=== PATIENT | male | born 1950 | race Caucasian/White ===

== ENCOUNTER → 2017-01-06 | Outpatient (CLI) | payer MEDICARE ==
[~2017-01-06] MED LIST: ACET-819 PO; ADVIL; ALLERGY PILL; ASPI1TAB22 PO; CIPR-17 PO; CIPR250S2 PO; DXZS2T PO; FISH1CAP15 PO; FNST5T PO; HCTZ12.5T PO; HYDR-3583 PO; HYDR-3876 PO; HYOS0.1216 PO; IBUP-15; LSNP20T; MELO-198 PO; METR500T PO; MUCINEX; PHEN200T27 PO; PROM25SU10 RC; QUIN20TA15 PO; SULF-222 PO; TMSL.4C PO
--- NOTE | 2017-01-09 07:19 | ECHOCARDIOGRAPHY REPORT ---
PROCEDURE PHYSICIAN: ALEXY BOB DATE OF PROCEDURE: 01/06/2017 TWO DIMENSIONAL ECHOCARDIOGRAM REPORT PRIMARY PHYSICIAN: Dr. Kamila Patricia OTHER PHYSICIAN: REFERRING PHYSICIAN: ORDERING PHYSICIAN: ATTENDING PHYSICIAN: Dr. Jose Bob FAMILY PHYSICIAN: Vannessa Rico READING PHYSICIAN: INDICATION FOR THE PROCEDURE: 1. Hypertension. 2. Hyperlipidemia. 3. Obstructive sleep apnea. 4. Shortness of breath. MEASUREMENTS DERIVED VALUES LV DIAMETER (LAX) NORMALS NORMALS Diastolic (3.6-5.2) Eject. Fract. (60%+/-6%) Systolic (2.3-3.9) Diastolic Vol. % Shortening (0.22-0.42) Systolic Vol. Aortic Root IVS THICKNESS Diastolic (0.6-1.1) LVPW THICKNESS Diastolic (0.6-1.1) LA DIAMETER Systolic (2.1-3.7) FINDINGS: 1. Sinus rhythm. 2. Mild left atrium enlargement is noted. 3. Aortic root is normal. 4. Borderline normal ejection fraction with an EF of 50 to 55%. No LVH is present. 5. There is no wall motion abnormalities. 6. Normal RV size and function. 7. No pericardial effusion. 8. Mild diastolic dysfunction. 9. IVC diameter is 1.9 cm. VALVULAR STRUCTURE OF THE HEART: Mild pulmonic regurgitation, mild mitral regurgitation, mild tricuspid regurgitation with RVSP of 21 mmHg. The aortic valve does not have any significant stenosis or regurgitation. CONCLUSIONS: 1. Normal LV and RV size and function. 2. Mild left atrial enlargement. 3. No significant valvular heart disease. 4. Mild diastolic dysfunction. Job ID: [id number] Dictated Date: 01/08/2017 22:35:34 Account Receivable Clerk Date: 01/09/2017 07:15:21 / ej
== END ==
LOC: CARD 08:09
PROVIDERS: ATTEND Internal Medicine Interventional Cardiology
DX: I10 Essential (primary) hypertension (principal); E78.5 Hyperlipidemia, unspecified; G47.33 Obstructive sleep apnea (adult) (pediatric); R06.02 Shortness of breath; Z87.891 Personal history of nicotine dependence
CPT/HCPCS: 93306

== ENCOUNTER → 2017-01-08 | Outpatient (CLI) | payer MEDICARE ==
[~2017-01-08] MED LIST changes: +REGADENOSON 0.4 MG/5 ML SYR (LEXISCAN) IV ONE
[2017-01-08] MEDS: CATHETER FLUSH 10 ML SYR IV PRN (11:44)
[2017-01-08 12:51] VITALS: BP 120/79
[2017-01-08] MEDS: REGADENOSON 0.4 MG/5 ML SYR (LEXISCAN) IV ONE (12:51)
[2017-01-08 12:55] VITALS: BP 134/72
--- NOTE | 2017-01-12 11:12 | STRESS TEST ---
PROCEDURE PHYSICIAN: ALEXY BOB DATE OF PROCEDURE: 01/08/2017 PRIMARY PHYSICIAN: Dr. Kamila Patricia FAMILY PHYSICIAN: Vannessa Rico APRN ATTENDING PHYSICIAN: Dr. Jose Bob. DIAGNOSES: 1. Hypertension. 2. Hyperlipidemia. PROCEDURE DETAILS: The patient was brought to the stress laboratory informed consent was taken. Lexiscan stress test was performed according to the protocol. 0.4 mg of Lexiscan was given IV. Low grade exercise was performed. Baseline EKG was sinus rhythm with heart rate of 54 bpm. Blood pressure was 120/79 mmHg. Maximum heart rate was 91 bpm and blood pressure was 134/70 mmHg. Stress test was stopped secondary to completion of protocol. The patient did not have any chest pain. There were no ST-T wave abnormalities. There were no arrhythmias. 10.34 mCi of Myoview were given for rest and 28.4 mCi of Myoview were given for stress images. TID was 1.01. Ejection fraction is 74%. There was a mild reversible inferior defect noted. Gaited images shows normal wall motion. CONCLUSION: 1. Pharmacological nuclear stress test is negative for ischemia. 2. There is a mild small sized reversible inferior defect with normal wall motion. This could be an artifact. Clinical correlation is recommended. Job ID: [id number] Dictated Date: 01/12/2017 09:15:06 Supervisor Shipfitters Date: 01/12/2017 11:06:01 / ej JANE
== END ==
LOC: CARD 11:20
PROVIDERS: ATTEND Internal Medicine Interventional Cardiology
DX: I10 Essential (primary) hypertension (principal); R06.02 Shortness of breath; E78.5 Hyperlipidemia, unspecified; G47.33 Obstructive sleep apnea (adult) (pediatric); Z87.891 Personal history of nicotine dependence
CPT/HCPCS: 78452; 93017

== ENCOUNTER → 2017-03-25 | Outpatient (CLI) | payer MEDICARE ==
[~2017-03-25] MED LIST changes: -REGADENOSON 0.4 MG/5 ML SYR (LEXISCAN) IV ONE
[2017-03-25 09:13] LABS: CHOLESTEROL 133 MG/DL (< 200); DIRECT LDL 78 MG/DL (1-129); TRIGLYCERIDES 100 MG/DL (<150); VLDL CHOLESTEROL 20 MG/DL (5-40)
== END ==
LOC: LAB 08:39
PROVIDERS: ATTEND Internal Medicine Interventional Cardiology
DX: E78.5 Hyperlipidemia, unspecified (principal)
CPT/HCPCS: 36415; 80061

== ENCOUNTER → 2017-04-22 | Outpatient (CLI) | payer MEDICARE ==
[2017-04-22 13:42] LABS: ALANINE AMINOTRANSFERASE 32 U/L (0-55); ALBUMIN 4.1 GM/DL (3.2-4.5); ANION GAP 10 MMOL/L (5-14); ASPARTATE AMINO TRANSFERASE 30 U/L (5-34); BILIRUBIN,TOTAL 1.3 MG/DL (0.1-1.0); BLOOD UREA NITROGEN 27 MG/DL (7-18); BUN/CREATININE RATIO 23 (0-20); CALCIUM 9.4 MG/DL (8.5-10.1); CARBON DIOXIDE 24 MMOL/L (21-32); CHLORIDE 107 MMOL/L (98-107); CREATININE SERUM 1.15 MG/DL (0.60-1.30); GFR ESTIMATED > 60; GLUCOSE 100 MG/DL (70-105); HEMOLYSIS 14 (0-29); ICTERUS 1.3 (0-1.9); LIPEMIA 1 (0-49); POTASSIUM 3.8 MMOL/L (3.6-5.0); SODIUM 141 MMOL/L (135-145); TOTAL PROTEIN 6.8 GM/DL (6.4-8.2)
== END ==
LOC: LAB 12:47
PROVIDERS: ATTEND Internal Medicine Interventional Cardiology
DX: N20.0 Calculus of kidney (principal)
CPT/HCPCS: 36415; 80053

== ENCOUNTER → 2017-08-26 | Outpatient (CLI) | payer MEDICARE, OTHER ==
[2017-08-26 11:40] LABS: BASOPHILS % (AUTO) 1 % (0-10); EOSINOPHILS # (AUTO) 0.4 10^3/uL (0.0-0.3); EOSINOPHILS % (AUTO) 6 % (0-10); LYMPHOCYTES # (AUTO) 1.8 X 10^3 (1.0-4.0); LYMPHOCYTES % (AUTO) 30 % (12-44); MEAN CORPUSCULAR HEMOGLOBIN 33 PG (25-34); MEAN CORPUSCULAR HGB CONC 36 G/DL (32-36); MEAN CORPUSCULAR VOLUME 92 FL (80-99); MEAN PLATELET VOLUME 10.7 FL (7.4-10.4); MONOCYTES # (AUTO) 0.6 X 10^3 (0.0-1.0); MONOCYTES % (AUTO) 9 % (0-12); NEUTROPHILS # (AUTO) 3.2 X 10^3 (1.8-7.8); NEUTROPHILS % (AUTO) 54 % (42-75); PLATELET COUNT 195 10^3/uL (130-400); RED BLOOD COUNT 4.79 10^6/uL (4.35-5.85)
[2017-08-26 11:45] LABS: BILIRUBIN,URINE NEGATIVE (NEGATIVE); KETONES,URINE NEGATIVE (NEGATIVE); LEUKOCYTE ESTERASE ,URINE NEGATIVE (NEGATIVE); NITRITE,URINE NEGATIVE (NEGATIVE); PH,URINE 5 (5-9); PROTEIN,URINE NEGATIVE (NEGATIVE); UROBILINOGEN,URINE NORMAL (NORMAL)
[2017-08-26 11:52] LABS: SQUAMOUS EPITHELIAL CELL,UR RARE /HPF; WBC,URINE RARE /HPF
[2017-08-26 11:57] LABS: ALBUMIN 4.3 GM/DL (3.2-4.5); ANION GAP 9 MMOL/L (5-14); BLOOD UREA NITROGEN 28 MG/DL (7-18); BUN/CREATININE RATIO 29; CALCIUM 9.7 MG/DL (8.5-10.1); CARBON DIOXIDE 25 MMOL/L (21-32); CHLORIDE 105 MMOL/L (98-107); CREATININE SERUM 0.98 MG/DL (0.60-1.30); GFR ESTIMATED > 60; GLUCOSE 105 MG/DL (70-105); PHOSPHORUS 2.8 MG/DL (2.3-4.7); POTASSIUM 3.8 MMOL/L (3.6-5.0); SODIUM 139 MMOL/L (135-145)
[2017-08-26 12:11] LABS: BAND NEUTROPHILS 1 %; EOSINOPHILS % (MANUAL) 4 %; LYMPHOCYTES % (MANUAL) 19 %; NEUTROPHILS % (MANUAL) 60 %; REACTIVE LYMPHOCYTES 6 %
== END ==
LOC: LAB 11:18
PROVIDERS: ATTEND Internal Medicine Interventional Cardiology
DX: M79.89 Other specified soft tissue disorders (principal); N20.0 Calculus of kidney
CPT/HCPCS: 36415; 80069; 81000; 85007; 85027; 87088; 87186

== ENCOUNTER → 2018-02-04 | Outpatient (CLI) | payer MEDICARE ==
--- NOTE | 2018-02-04 10:47 | Diagnostic Imaging Report ---
PROCEDURE: MRI lumbar spine. TECHNIQUE: A multiplanar/multisequence MRI of the lumbar spine was performed without contrast. INDICATION: Low back pain with left hip and leg pain as well as numbness and tingling. COMPARISON: No prior studies are available for comparison. FINDINGS: The curvature of the lumbar spine is normal. There is minimal retrolisthesis of L2 on L3. The vertebral body heights are maintained. No acute compression fracture is seen. No geographic marrow lesion is identified. There is generalized degenerative disc disease with mild disc space narrowing and desiccation at all levels. The conus is unremarkable at the L1 level. Benign hemangiolipomas within the T11 and L1 vertebral bodies are noted. T12-L1: No central canal or neuroforaminal stenosis is identified. L1-2: Unremarkable. L2-3: There is a minimal disc/osteophyte complex but the central canal is widely patent. No significant neuroforaminal stenosis is seen. L3-4: There is a slightly asymmetric broad-based disc/osteophyte complex to the left. This produces slight indentation upon the ventral thecal sac. There is narrowing of the left lateral recess but no significant neuroforaminal stenosis is seen. The central canal is patent. L4-5: The central canal is widely patent. There is some annular bulging present. No neuroforaminal stenosis is seen. There is some mild bilateral lateral recess stenosis. L5-S1: There is a wide-based midline/left paramidline disc bulge. This does indent the ventral thecal sac. This does contact the left S1 nerve root origin. There is lateral recess stenosis. The neuroforamina are patent. The paraspinous tissues are unremarkable apart from a questionable large cyst of the right kidney, barely visible on this exam. IMPRESSION: Multilevel lumbar spondylosis with multilevel lateral recess narrowing described level by level above. There is a prominent wide based midline/left paramidline disc bulge at the L5-S1 level which effaces the left S1 nerve root origin. Dictated by: Dictated on workstation # [id number]
== END ==
LOC: RAD 09:12
PROVIDERS: ATTEND Physician Assistant
DX: M48.07 Spinal stenosis, lumbosacral region (principal); M51.17 Intervertebral disc disorders with radiculopathy, lumbosacral region; M47.816 Spondylosis without myelopathy or radiculopathy, lumbar region
CPT/HCPCS: 72148

== ENCOUNTER 2018-03-04 13:37 | Emergency (ER) | payer MEDICARE, OTHER ==
[~2018-03-04] VITALS: Ht 172.7 cm; Wt 92.5 kg
--- OUTSIDE RECORDS SUMMARY | 2018-03-04 13:43 | XMS REPORT ---
Author Author MARIA LUZ VELA [facility] eClinicalWorks Address Unknown Phone Unavailable Care Team Providers Care Cement Boat And Barge Loader Name Role Phone MARIA LUZ VELA CP Unavailable Allergies No Known Allergies Problems Problem Type Condition ICD-9 Code Onset Dates Condition Status Problem Calculus of kidney 592.0 Active Problem Lumbago 724.2 Active Problem Obstructive sleep apnea (adult) (pediatric) 327.23 Active Problem Essential hypertension, benign 401.1 Active Assessment Dental examination V72.2 Active Medications No Known Medications Procedures Procedure Coding System Code Date Billing Notes on claim CPT-4 [id number] March 09, 2015 Results No Known Results Summary Purpose eClinicalWorks Submission
--- OUTSIDE RECORDS SUMMARY | 2018-03-04 13:43 | XMS REPORT ---
Author Author GLENNY LINDSAY Organization eClinicalWorks Address Unknown Phone Unavailable Care Team Providers Care Knowledge Manager Name Role Phone GLENNY LINDSAY CP Unavailable Allergies No Known Allergies Problems Problem Type Condition ICD-9 Code Onset Dates Condition Status Problem Calculus of kidney 592.0 Active Problem Lumbago 724.2 Active Problem Obstructive sleep apnea (adult) (pediatric) 327.23 Active Problem Essential hypertension, benign 401.1 Active Medications No Known Medications Results No Known Results Summary Purpose eClinicalWorks Submission
--- OUTSIDE RECORDS SUMMARY | 2018-03-04 13:43 | XMS REPORT ---
Author Author GLENNY LINDSAY [facility] eClinicalWorks Address Unknown Phone Unavailable Care Team Providers Care Metal Cans Supervisor Name Role Phone GLENNY LINDSAY CP Unavailable Allergies No Known Allergies Problems Problem Type Condition Code Onset Dates Condition Status Problem Calculus of kidney 592.0 Active Problem Lumbago 724.2 Active Problem Obstructive sleep apnea (adult) (pediatric) 327.23 Active Problem Essential hypertension, benign 401.1 Active Assessment Encounter for immunization Z23 Active Medications No Known Medications Procedures Procedure Coding System Code Date SINGLE IMMUNIZATION ADMIN CPT-4 22038 Aug 16, 2015 FLUARIX QUAD (3 & UP)-GSK-2014 CPT-4 35371 Aug 16, 2015 Results No Known Results Immunizations Vaccine Administration Date FLUARIX QUAD (3 & UP)-GSK-2014Aug 16, 2015 Summary Purpose eClinicalWorks Submission
--- OUTSIDE RECORDS SUMMARY | 2018-03-04 13:43 | XMS REPORT ---
Author Author GLENNY LINDSAY [facility] eClinicalWorks Address Unknown Phone Unavailable Care Team Providers Care Letter Carrier Name Role Phone GLENNY LINDSAY CP Unavailable Allergies No Known Allergies Problems Problem Type Condition Code Onset Dates Condition Status Problem Sleep apnea, unspecified type G47.30 Active Problem Hypertension I10 Active Problem Onychomycosis B35.1 Active Problem Lumbago 724.2 Active Problem Essential hypertension, benign 401.1 Active Problem Obstructive sleep apnea (adult) (pediatric) 327.23 Active Problem Calculus of kidney 592.0 Active Medications No Known Medications Results No Known Results Summary Purpose eClinicalWorks Submission
--- OUTSIDE RECORDS SUMMARY | 2018-03-04 13:43 | XMS REPORT ---
Author Author GLENNY LINDSAY [facility] eClinicalWorks Address Unknown Phone Unavailable Care Team Providers Care Reel Fed Printer Name Role Phone GLENNY LINDSAY CP Unavailable Allergies, Adverse Reactions, Alerts Substance Reaction Event Type N.K.D.A. Info Not Available Non Drug Allergy Problems Problem Type Condition ICD-9 Code Onset Dates Condition Status Problem Calculus of kidney 592.0 Active Problem Lumbago 724.2 Active Problem Obstructive sleep apnea (adult) (pediatric) 327.23 Active Assessment Essential hypertension, benign 401.1 Active Problem Essential hypertension, benign 401.1 Active Assessment Obstructive sleep apnea (adult) (pediatric) 327.23 Active Medications Medication Code System Code Instructions Start Date End Date Status Dosage Quinapril HCl [facility] [address]-78 20 MG Orally Twice a day [address] [facility] [address]-35 7.5 MG Orally 2 times a day [address] [facility] [address]-08 2 MG Orally Once a day [address] [facility] [address]-27 25 MG Orally Once a day [address] [facility] [address]-68 5 MG Orally Once a day 1 tablet Procedures Procedure Coding System Code Date Office Visit, Est Pt., Level 3 CPT-4 26318 Jul 04, 2015 Vital Signs Date/Time: Jul 04, 2015 Temperature 98.1 F Weight 198.6 lbs Height 67 in BMI 31.10 Index Blood Pressure Diastolic 68 mmHg Blood Pressure Systolic 112 mmHg Cardiac Monitoring Heart Rate 80 bpm Results No Known Results Summary Purpose eClinicalWorks Submission
--- OUTSIDE RECORDS SUMMARY | 2018-03-04 13:43 | XMS REPORT ---
Author Author GLENNY LINDSAY Organization eClinicalWorks Address Unknown Phone Unavailable Care Team Providers Care Survey Interviewer Name Role Phone GLENNY LINDSAY CP Unavailable Allergies No Known Allergies Problems Problem Type Condition ICD-9 Code Onset Dates Condition Status Problem Calculus of kidney 592.0 Active Problem Lumbago 724.2 Active Problem Obstructive sleep apnea (adult) (pediatric) 327.23 Active Problem Essential hypertension, benign 401.1 Active Assessment High cholesterol 272.0 Active Medications No Known Medications Results No Known Results Summary Purpose eClinicalWorks Submission
--- OUTSIDE RECORDS SUMMARY | 2018-03-04 13:44 | XMS REPORT ---
Author Author GLENNY LINDSAY [facility] Address [address] [place] [address] Care Team Providers Care Marine Rigger Name Role Phone GLENNY LINDSAY Unavailable PROBLEMS Type Condition ICD9-CM Code [id number] Code Onset Dates Condition Status SNOMED Code Problem Calculus of kidney 592.0 Active 38813474 Problem Obstructive sleep apnea (adult) (pediatric) 327.23 Active 78302062 Problem Essential hypertension, benign 401.1 Active 2267954 Problem Lumbago 724.2 Active 833497205 Problem Benign prostatic hyperplasia with lower urinary tract symptoms, unspecified morphology N40.1 Active 175357823 Problem Slow transit constipation K59.01 Active 55318944 Problem Sleep apnea, unspecified type G47.30 Active 70500014 Problem Hypertension I10 Active 48122667 Problem Encounter for immunization Z23 Active 695972983 Problem Onychomycosis B35.1 Active 266459698 ALLERGIES Substance Reaction Event Type Date Status N.K.D.A. Unknown Non Drug Allergy Nov, Unknown SOCIAL HISTORY No smoking Hx information available PLAN OF CARE Activity Details Follow Up 3 Months Reason:hyperglycemia VITAL SIGNS Height 67 in 2016-11-11 Weight 202.1 lbs 2016-11-11 Temperature 97.7 degrees Fahrenheit 2016-11-11 Heart Rate 80 bpm 2016-11-11 Respiratory Rate 22 2016-11-11 Oximetry 98 % 2016-11-11 BMI 31.65 kg/m2 2016-11-11 Blood pressure systolic 130 mmHg 2016-11-11 Blood pressure diastolic 73 mmHg 2016-11-11 MEDICATIONS Medication Instructions Dosage Frequency Start Date End Date Duration Status Celebrex 200 MG TAKE ONE TO TWO CAPSULES BY MOUTH ONCE DAILY 30 Active Proscar 5 MG TAKE ONE TABLET BY MOUTH DAILY 30 Active MiraLax - Orally Once a day 17g 24h Nov, Nov, 10 days Active Doxazosin Mesylate 4 MG TAKE ONE TABLET BY MOUTH ONCE DAILY 30 Active Accupril 20 MG TAKE ONE TABLET BY MOUTH TWICE DAILY 30 Active Aspirin Adult Low Dose 81 MG Orally Once a day 1 tablet 24h Active Hydrochlorothiazide 25 MG Orally Once a day 1 tablet 24h 90 Active RESULTS Name Result Date Reference Range A1C (IN HOUSE) 2016-11-11 A1C IN HOUSE 5.5 4.3 - 5.6 % Previous A1c Lot [id number] Exp date 08/2018 CBC 2016-11-11 WBC 4.2 3.4-10.8 RBC 4.82 4.14-5.80 Hemoglobin 15.7 12.6-17.7 Hematocrit 45.0 37.5-51.0 MCV 93 79-97 MCH 32.6 26.6-33.0 MCHC 34.9 31.5-35.7 RDW 13.5 12.3-15.4 Platelets 192 150-379 Neutrophils 57 Lymphs 29 Monocytes 10 Eos 3 Basos 0 Neutrophils (Absolute) 2.4 1.4-7.0 Lymphs (Absolute) 1.2 0.7-3.1 Monocytes(Absolute) 0.4 0.1-0.9 Eos (Absolute) 0.1 0.0-0.4 Baso (Absolute) 0.0 0.0-0.2 Immature Granulocytes 1 Immature Grans (Abs) 0.0 0.0-0.1 CRP, CARDIAC 2016-11-11 C-Reactive Protein, Cardiac 1.93 0.00-3.00 LIPID PANEL 2016-11-11 Cholesterol, Total 204 100-199 Triglycerides 96 0-149 HDL Cholesterol 44 >39 VLDL Cholesterol Ko 19 5-40 LDL Cholesterol Calc 141 0-99 CMP 2016-11-11 Glucose, Serum 101 65-99 BUN 26 8-27 Creatinine, Serum 1.05 0.76-1.27 eGFR If NonAfricn Am 74 >59 eGFR If Africn Am 85 >59 BUN/Creatinine Ratio 25 10-22 Sodium, Serum 142 134-144 Potassium, Serum 4.2 3.5-5.2 Chloride, Serum 102 96-106 Carbon Dioxide, Total 25 18-29 Calcium, Serum 9.4 8.6-10.2 Protein, Total, Serum 6.8 6.0-8.5 Albumin, Serum 4.7 3.6-4.8 Globulin, Total 2.1 1.5-4.5 A/G Ratio 2.2 1.1-2.5 Bilirubin, Total 0.4 0.0-1.2 Alkaline Phosphatase, S 60 39-117 AST (SGOT) 24 0-40 ALT (SGPT) 27 0-44 Xray : Chest (IN HOUSE) 2016-11-11 Xray : Abdomen 1v (Upright) - IN HOUSE 2016-11-11 PROCEDURES Procedure Date Ordered Related Diagnosis Body Site ELECTROCARDIOGRAM, TRACING Nov 11, 2016 VENIPUNCT, ROUTINE* Nov 11, 2016 Office Visit, Est Pt., Level 3 Nov 11, 2016 EKG, TRACING (IN-HOUSE) 2016-11-11 N/A MEASURE BLOOD OXYGEN LEVEL Nov 11, 2016 LIPID PANEL Nov 11, 2016 COMPREHEN METABOLIC PANEL Nov 11, 2016 C-REACTIVE PROTEIN, HS Nov 11, 2016 GLYCATED HEMOGLOBIN TEST Nov 11, 2016 X-RAY EXAM OF ABDOMEN Nov 11, 2016 COMPLETE CBC W/AUTO DIFF WBC Nov 11, 2016 CHEST X-RAY Nov 11, 2016 IMMUNIZATIONS No Known Immunizations
--- OUTSIDE RECORDS SUMMARY | 2018-03-04 13:44 | XMS REPORT ---
Author Author GLENNY LINDSAY Organization eClinicalWorks Address Unknown Phone Unavailable Care Team Providers Care Site Promotion Agent Name Role Phone GLENNY LINDSAY CP Unavailable Allergies No Known Allergies Problems Problem Type Condition ICD-9 Code Onset Dates Condition Status Problem Calculus of kidney 592.0 Active Problem Lumbago 724.2 Active Problem Obstructive sleep apnea (adult) (pediatric) 327.23 Active Problem Essential hypertension, benign 401.1 Active Assessment Obstructive sleep apnea (adult) (pediatric) 327.23 Active Medications No Known Medications Procedures Procedure Coding System Code Date VENIPUNCT, ROUTINE* CPT-4 58910 Jul 23, 2015 [facility] CPT-4 NOBLL Jul 23, 2015 Results Name Result Date Reference Range Unit Abnormality Flag ROUTINE VENIPUNCTURE Summary Purpose eClinicalWorks Submission
--- OUTSIDE RECORDS SUMMARY | 2018-03-04 13:44 | XMS REPORT ---
Author Author GLENNY LINDSAY Organization eClinicalWorks Address Unknown Phone Unavailable Care Team Providers Care Youth Associate Name Role Phone GLENNY LINDSAY CP Unavailable Allergies, Adverse Reactions, Alerts Substance Reaction Event Type N.K.D.A. Info Not Available Non Drug Allergy Problems Problem Type Condition Code Onset Dates Condition Status Assessment Sleep apnea, unspecified type G47.30 Active Assessment Essential hypertension I10 Active Problem Sleep apnea, unspecified type G47.30 Active Problem Hypertension I10 Active Problem Onychomycosis B35.1 Active Problem Lumbago 724.2 Active Problem Essential hypertension, benign 401.1 Active Problem Obstructive sleep apnea (adult) (pediatric) 327.23 Active Problem Calculus of kidney 592.0 Active Medications Medication Code System Code Instructions Start Date End Date Status Dosage Celebrex [facility] 29150384070 200 MG Orally Once a day 1 or 2 capsule Doxazosin Mesylate [facility] 03136629042 4 MG TAKE ONE TABLET BY MOUTH ONCE DAILY Hydrochlorothiazide [facility] [address]-64 25 MG Orally Once a day 1 tablet Quinapril HCl [facility] [address]-20 20 MG Orally Twice a day 1 tablet Proscar [facility] 00855276785 5 MG TAKE ONE TABLET BY MOUTH DAILY Procedures Procedure Coding System Code Date Office Visit, Est Pt., Level 3 CPT-4 95370 Jul 22, 2016 Vital Signs Date/Time: Jul 22, 2016 Cardiac Monitoring Heart Rate 76 bpm Weight 198 lbs Height 67 in BMI 31.01 Index Blood Pressure Diastolic 80 mmHg Blood Pressure Systolic 100 mmHg Results No Known Results Summary Purpose eClinicalWorks Submission
--- OUTSIDE RECORDS SUMMARY | 2018-03-04 13:44 | XMS REPORT ---
Author Author GLENNY LINDSAY Organization [facility] Address [address] [place] [address] Care Team Providers Care Sheet Rock Sander Name Role Phone GLENNY LINDSAY Unavailable PROBLEMS Type Condition ICD9-CM Code IYY10-KZ Code Onset Dates Condition Status SNOMED Code Problem Hypertension I10 Active 33413189 Problem Sleep apnea, unspecified type G47.30 Active 48849242 Problem Onychomycosis B35.1 Active 600339951 Problem Lumbago 724.2 Active 702419191 Problem Calculus of kidney 592.0 Active 85662965 Problem Essential hypertension, benign 401.1 Active 8043016 Problem Obstructive sleep apnea (adult) (pediatric) 327.23 Active 30887650 Problem Acute left-sided low back pain with left-sided sciatica M54.42 Active 887326407 Problem Pure hypercholesterolemia, unspecified E78.00 Active 167984572 Problem Slow transit constipation K59.01 Active 90895883 Problem Encounter for immunization Z23 Active 099377974 Problem Calculus of kidney N20.0 Active 72868566 Problem Benign prostatic hyperplasia with lower urinary tract symptoms, unspecified morphology N40.1 Active 481379903 ALLERGIES No Information ENCOUNTERS Encounter Location Date Diagnosis [place] [address] [address] Jan, [place] [address] [address] Dec, Acute left-sided low back pain with left-sided sciatica M54.42 [address] [address] [place] [address]- [address] Dec, Acute left-sided low back pain with left-sided sciatica M54.42 [place] [address] [place] [address]- [address] Sep, [place] [address] [address] Sep, Hypertension I10 ; Pure hypercholesterolemia, unspecified E78.00 ; Calculus of kidney N20.0 ; Benign prostatic hyperplasia with lower urinary tract symptoms, unspecified morphology N40.1 and Sleep apnea, unspecified type G47.[address] [address] Aug, Encounter for immunization Z23 [place] [address] [address] Apr, [address] [address] March, [address] [address] Feb, Benign prostatic hyperplasia with lower urinary tract symptoms, unspecified morphology N40.1 ; Hypertension I10 and Pure hypercholesterolemia, unspecified E78.00 [place] [address] [address] Jan, Slow transit constipation K59.[address] [address] Nov, Lower abdominal pain R10.30 ; Shortness of breath R06.02 ; Hyperglycemia R73.9 and Slow transit constipation K59.01 [place] [address] [address] Oct, [place] [address] [address] Aug, Encounter for immunization Z23 [place] [address] [address] 13 Jul, 2016 Sleep apnea, unspecified type G47.30 and Essential hypertension I10 [address] [address] 15 Jun, 2016 [facility] [id number] [place] [address] 9[address]- 0684 Jun, Onychomycosis B35.1 [place] [address] [place] [address] [id number] [place] [address]- 02[address] May, Onychomycosis B35.1 [facility] [id number] [place] [address]- 2608 Apr, Sleep apnea, unspecified type G47.30 [place] [address] [id number] [place] [address]- [address] March, Onychomycosis B35.1 and Sleep apnea, unspecified type G47.30 [place] [address] [place] [address] [id number] [place] [address]- [address] Jan, Hypertension I10 ; Low back pain M54.5 and High cholesterol 272.0 [place] [address] [place] [id number] [place] [address]- 9[address] 08 Aug, 2015 Encounter for immunization Z23 [place] [address] [place] [id number] [place] [address]60- [address] 18 Jul, 2015 [place] [address] [address] [id number] [place] [address] 34794- 8026 16 Jul, 2015 High cholesterol 272.0 [place] [address] [id number] [place] [address] 10022- 2738 14 Jul, 2015 [facility] [id number] [place] [address]125- 2434 14 Jul, 2015 Obstructive sleep apnea (adult) (pediatric) 327.23 [facility] [id number] [place] [id number] Jun, Dental examination V72.2 [facility] [id number] [place] [address] 03411- 7140 Jun, Obstructive sleep apnea (adult) (pediatric) 327.23 and Essential hypertension, benign 401.1 [facility] [address] [address] Apr, [facility] [id number] [place] [address] 606755- 4876 Apr, Diverticulitis 562.11 [facility] [id number] [address] Apr, [facility] [id number] [place] [address] 62321- 9113 March, Unspecified prostatitis 601.9 and Dysuria 788.1 [facility] [id number] [place] [address] 693591- 2245 March, [facility] [id number] [place] [address] [id number] March, Dental examination V72.2 [facility] [id number] [place] [address] 22261- 2188 Feb, [facility] [address] [place] [address] 87727- 8771 Feb, [facility] [address] [place] [address] 11944- 1663 Dec, [facility] [address] [address] Dec, [facility] [address] [place] [address] 97390- 4942 Nov, [facility] [address] [address] 6[address] Nov, [facility] [address] [place] [address] 83877- 9943 Oct, [facility] [address] Oct, [facility] [address] [place] [address] 131268- 7205 Oct, [facility] [place] [facility] [address] [id number] [place] [address]- 2547 Oct, [facility] [place] [facility] [address] [id number] [place] [address]- 2546 Oct, [facility] [place] [facility] [address] [id number] [place] [address]- 2543 Oct, [facility] [place] [facility] [address] [id number] [place] [address]- 2540 Aug, [facility] [place] [facility] [address] [id number] [place] [address]- 2542 Aug, [facility] [place] [facility] [address] [id number] [place] [address]- 7826 Aug, [facility] [place] [facility] [address] [id number] [place] [address]- 0189 Aug, [facility] [place] [facility] [address] [id number] [place] [address]- 254 Jul, [facility] [place] [facility] [address] [id number] [place] [address]- 2548 Jul, [facility] [place] [facility] [address] [id number] [place] [id number] Jun, [facility] [place] [facility] [address] [id number] [place] [address]- 2546 Jun, [facility] [place] [facility] [address] [id number] [address]- 2546 May, [facility] [place] [facility] [address] [id number] [place] [address]- 2541 May, [facility] [place] [facility] [address] [id number] [place] [address]- 2546 May, [facility] [place] [facility] [address] [id number] [place] [address]- 2546 May, [facility] [place] [facility] [address] [id number] [place] [address]- 8604 Apr, [facility] [place] [facility] [address] [id number] [place] [address] Apr, [facility] [place] [facility] [address] [id number] [place] [address]- 3518 March, [facility] [place] [facility] [address] [id number] [place] [address]- 1666 March, [facility] [place] [facility] [address] [id number] [place] [address]- 8313 March, [facility] [place] [facility] [address] [id number] [place] [address]- 3669 March, [facility] [place] [facility] [address] [id number] [place] [address]- 0111 March, [facility] [place] [facility] [address] [id number] [place] [address] March, [facility] [place] [facility] [address] [id number] [place] [address]- 8407 Jan, [facility] [place] [facility] [address] [id number] [place] [address]- 4984 Jan, [facility] [place] [facility] [address] [id number] [place] [address]- 2645 Jan, [facility] [place] [facility] [address] [id number] [place] [address]- 4122 Jan, [facility] [place] [facility] [address] [id number] [place] [address]- 8469 Jan, [facility] [place] [facility] [address] [id number] [place] [address]- 5765 Jan, [facility] [place] [facility] [address] [id number] [place] [address]- 0251 Jan, [facility] [place] [facility] [address] [id number] [place] [address]- 2587 Jan, [facility] [place] [facility] [address] [id number] [place] [address]- 8067 Nov, [facility] [address] [id number] [place] [address]- 9581 Nov, [facility] [address] [id number] [place] [address]- 1668 Nov, [facility] [address] [id number] [place] [address]- 5196 Nov, [facility] [address] [id number] [place] [address]- 1201 Oct, [facility] [address] [id number] [place] [address]- 6530 Oct, [facility] [address] [id number] [place] [address]- 8538 Sep, [facility] [address] [id number] [place] [address]- 6571 Sep, [facility] [address] [id number] [place] [address]- 6365 Sep, [facility] [address] [id number] [place] [address]- 5223 Sep, [facility] [address] [id number] [place] [address]- 5006 Sep, [facility] [address] [id number] [place] [address]- 7914 Sep, [facility] [address] [id number] [place] [address]- 0337 Jul, [facility] [place] [facility] [address] [id number] [place] [address]- 2549 May, [facility] [place] [facility] [address] [id number] [place] [address]- 2546 May, [facility] [address] [id number] [place] [address]- 3199 March, [facility] [address] [id number] [place] [address]- 1407 March, [facility] [place] [facility] [address] [id number] [place] [address]- 6957 March, [facility] [place] [facility] [address] [id number] [place] [address]- 5333 March, [facility] [place] [facility] [address] [id number] [place] [address]- 4244 Feb, [facility] [place] [facility] [address] [id number] [place] [address]- 8621 Nov, [facility] [place] [facility] [address] [id number] [place] [address]- 7667 Oct, [facility] [place] [facility] [address] [id number] [place] [address]- 1777 Oct, [facility] [place] [facility] [address] [id number] [place] [address]- 2588 Sep, [facility] [place] [facility] [address] [id number] [place] [address]- 6444 Sep, [facility] [place] [facility] [address] [id number], [place] [address]- 6556 Sep, [facility] [place] [facility] [address] [id number], [place] [address]- 8055 Sep, [facility] [place] [facility] [address] [id number], [place] [address]- 3409 Aug, [facility] [place] [facility] [address] [id number] [place] [address]- 0365 Aug, [facility] [place] [facility] [address] [id number], [place] [address]- 7747 May, [facility] [place] [facility] [address] [id number] [address] Feb, [facility] [place] [facility] [address] [id number], [place] [address]- 7976 Feb, [facility] [id number] [address]- 4[address] Feb, [facility] [address], [place] [address] 2546 Jan, [facility] [address] [address]- 2546 Jan, [facility] [address] [place] [address] 15254 2546 Oct, [facility] [address], [place] [address] 2546 Oct, [facility] [address] [address]- 6936 Dec, [facility] [address], [place] [address]- 3879 Aug, IMMUNIZATIONS No Known Immunizations SOCIAL HISTORY Never Assessed REASON FOR VISIT MTM (Medication Therapy Management) PLAN OF CARE VITAL SIGNS MEDICATIONS Medication Instructions Dosage Frequency Start Date End Date Duration Status Accupril 20 MG Orally 2 times a day 1 tablet 12h 90 days Active RESULTS No Results PROCEDURES No Known procedures INSTRUCTIONS MEDICATIONS ADMINISTERED No Known Medications MEDICAL (GENERAL) HISTORY Type Description Date Medical History hypertension Medical History hernia-hiatal hernia repair Medical History Arthritis Medical History kidney stoes Medical History eye exam 07/2015 cataracts, poss glaucoma, dry eye Surgical History hernia repair Surgical History Appendectomy 2011 Surgical History Removal of Kidney Stones 2014 Surgical History vasectomy Surgical History eyelids lifted Surgical History cataract surgery Hospitalization History Hospitalization for surgery only
--- OUTSIDE RECORDS SUMMARY | 2018-03-04 13:44 | XMS REPORT ---
Author Author YOSHI VELA [employer] Address Unknown Phone Unavailable Care Team Providers Care Doll Maker Name Role Phone YOSHI VELA CP Unavailable Allergies No Known Allergies Problems Problem Type Condition ICD-9 Code Onset Dates Condition Status Problem Calculus of kidney 592.0 Active Problem Lumbago 724.2 Active Problem Obstructive sleep apnea (adult) (pediatric) 327.23 Active Problem Essential hypertension, benign 401.1 Active Assessment Dental examination V72.2 Active Medications No Known Medications Procedures Procedure Coding System Code Date Billing Notes on claim CPT-4 EC109 Jul 04, 2015 Results No Known Results Summary Purpose [employer] Submission
--- OUTSIDE RECORDS SUMMARY | 2018-03-04 13:44 | XMS REPORT ---
Author Author GLENNY LINDSAY Organization [facility] Address [address] [place] [address] Care Team Providers Care Control Clerk Repairs Name Role Phone GLENNY LINDSAY Unavailable PROBLEMS Type Condition ICD9-CM Code XNA81-JC Code Onset Dates Condition Status SNOMED Code Problem Calculus of kidney 592.0 Active 78071464 Problem Obstructive sleep apnea (adult) (pediatric) 327.23 Active 80736004 Problem Essential hypertension, benign 401.1 Active 7679871 Problem Lumbago 724.2 Active 894875790 Problem Benign prostatic hyperplasia with lower urinary tract symptoms, unspecified morphology N40.1 Active 739985136 Problem Slow transit constipation K59.01 Active 00235117 Problem Sleep apnea, unspecified type G47.30 Active 41581468 Problem Hypertension I10 Active 17420204 Problem Encounter for immunization Z23 Active 982638116 Problem Onychomycosis B35.1 Active 522300224 ALLERGIES No Information SOCIAL HISTORY Never Assessed PLAN OF CARE VITAL SIGNS MEDICATIONS Unknown Medications RESULTS No Results PROCEDURES No Known procedures IMMUNIZATIONS No Known Immunizations MEDICAL (GENERAL) HISTORY Type Description Date Medical History hypertension Medical History hernia-hiatal hernia repair Medical History Arthritis Medical History kidney stoes Medical History eye exam 07/2015 cataracts, poss glaucoma, dry eye Surgical History hernia repair Surgical History Appendectomy 2011 Surgical History Removal of Kidney Stones 2015 Surgical History vasectomy Hospitalization History Hospitalization for surgery only
--- OUTSIDE RECORDS SUMMARY | 2018-03-04 13:44 | XMS REPORT ---
Author Author GLENNY LNIDSAY [facility] Address [address] [place] [address] Care Team Providers Care Practice Representative Name Role Phone GLENNY LINDSAY Unavailable PROBLEMS Type Condition ICD9-CM Code ZZS88-PR Code Onset Dates Condition Status SNOMED Code Problem Calculus of kidney 592.0 Active 79960125 Problem Obstructive sleep apnea (adult) (pediatric) 327.23 Active 90794350 Problem Essential hypertension, benign 401.1 Active 5047766 Problem Lumbago 724.2 Active 412730394 Problem Benign prostatic hyperplasia with lower urinary tract symptoms, unspecified morphology N40.1 Active 535203943 Problem Slow transit constipation K59.01 Active 32609789 Problem Sleep apnea, unspecified type G47.30 Active 13807244 Problem Hypertension I10 Active 09852773 Problem Encounter for immunization Z23 Active 460754950 Problem Onychomycosis B35.1 Active 585682583 ALLERGIES No Known Allergies SOCIAL HISTORY Never Assessed PLAN OF CARE Activity Details Follow Up 6 Months Reason:BP VITAL SIGNS Height 67 in 2017-02-25 Weight 203 lbs 2017-02-25 Temperature 98.7 degrees Fahrenheit 2017-02-25 Heart Rate 68 bpm 2017-02-25 Respiratory Rate 18 2017-02-25 BMI 31.79 kg/m2 2017-02-25 Blood pressure systolic 130 mmHg 2017-02-25 Blood pressure diastolic 78 mmHg 2017-02-25 MEDICATIONS Medication Instructions Dosage Frequency Start Date End Date Duration Status Celebrex 200 MG TAKE ONE TO TWO CAPSULES BY MOUTH ONCE DAILY 30 Active Proscar 5 MG TAKE ONE TABLET BY MOUTH DAILY 30 Active Doxazosin Mesylate 4 MG TAKE ONE TABLET BY MOUTH ONCE DAILY 30 Active Aspirin Adult Low Dose 81 MG Orally Once a day 1 tablet 24h Active MiraLax - Orally Once a day 17g 24h Nov, 10 days Active Accupril 20 MG TAKE ONE TABLET BY MOUTH TWICE DAILY 30 Active Hydrochlorothiazide 25 MG Orally Once a day 1 tablet 24h 90 Active RESULTS No Results PROCEDURES No Known procedures IMMUNIZATIONS No Known Immunizations MEDICAL (GENERAL) HISTORY Type Description Date Medical History hypertension Medical History hernia-hiatal hernia repair Medical History Arthritis Medical History kidney stoes Medical History eye exam 07/2015 cataracts, poss glaucoma, dry eye Surgical History hernia repair Surgical History Appendectomy 2011 Surgical History Removal of Kidney Stones 2014 Surgical History vasectomy Hospitalization History Hospitalization for surgery only
--- OUTSIDE RECORDS SUMMARY | 2018-03-04 13:44 | XMS REPORT ---
Author Author GLENNY LINDSAY Organization [employer] Address Unknown Phone Unavailable Care Team Providers Care Studio Set Up Worker Name Role Phone GLENNY LINDSAY CP Unavailable Allergies No Known Allergies Problems Problem Type Condition Code Onset Dates Condition Status Problem Essential hypertension, benign 401.1 Active Assessment Encounter for immunization Z23 Active Problem Onychomycosis B35.1 Active Problem Sleep apnea, unspecified type G47.30 Active Problem Encounter for immunization Z23 Active Problem Calculus of kidney 592.0 Active Problem Lumbago 724.2 Active Problem Hypertension I10 Active Problem Obstructive sleep apnea (adult) (pediatric) 327.23 Active Medications No Known Medications Procedures Procedure Coding System Code Date PCV 13 CPT-4 86815 Aug 26, 2016 SINGLE IMMUNIZATION ADMIN CPT-4 95348 Aug 26, 2016 FLUARIX QUAD P-FREE 3 AND UP .50 2015 CPT-4 45596 Aug 26, 2016 IMMUNIZATION ADMIN, EACH ADD (please include units) CPT-4 51885 Aug 26, 2016 Results No Known Results Immunizations Vaccine Administration Date FLUARIX QUAD P-FREE 3 AND UP .50 2015Aug 26, 2016 PCV 13 Aug 26, 2016 Summary Purpose [employer] Submission
--- OUTSIDE RECORDS SUMMARY | 2018-03-04 13:46 | XMS REPORT | Continuity of Care Document ---
Author Author [facility] Address Unknown Phone Unavailable Allergies Active Description Code Type Severity Reaction Onset Reported/Identified Relationship to Patient Clinical Status Yes No Known Drug Allergies [id number] Drug Allergy Unknown N/A 11/23/2007 Medications There is no data. Problems Date Dx Coded Attending Type Code Diagnosis Diagnosed By 02/14/2010 562.11 DIVERTICULITIS OF COLON 02/14/2010 562.11 Diverticulitis Of Colon 02/14/2010 KOKO CONLEY DDS 562.11 Diverticulitis Of Colon 02/14/2010 562.11 Diverticulitis Of Colon 02/14/2010 562.11 Diverticulitis Of Colon 02/14/2010 562.11 Diverticulitis Of Colon 02/14/2010 MARIA LUZ VELA DDS 562.11 Diverticulitis Of Colon 02/14/2010 BRIT ALVAREZ DO 562.11 Diverticulitis Of Colon 02/14/2010 GLENNY LINDSAY APRN 562.11 DIVERTICULITIS OF COLON 02/14/2010 BRIT ALVAREZ DO 562.11 Diverticulitis Of Colon 02/14/2010 BEBETO NICOLE MD 562.11 Diverticulitis Of Colon 02/14/2010 YOSHI VELA DDS 562.11 Diverticulitis Of Colon 02/14/2010 GLENNY LINDSAY APRN 562.11 Diverticulitis Of Colon 02/14/2010 YOSHI VELA DDS 562.11 Diverticulitis Of Colon 02/14/2010 YOSHI VELA DDS 562.11 Diverticulitis Of Colon 02/14/2010 BRIT ALVAREZ DO 562.11 Diverticulitis Of Colon 02/14/2010 YOSHI VELA DDS 562.11 Diverticulitis Of Colon 02/14/2010 YOSHI VELA DDS 562.11 Diverticulitis Of Colon 03/14/2010 719.46 PAIN IN JOINT , LOWER LEG 03/14/2010 796.2 ELEVATED BLOOD PRESSURE READING WITHOUT DIAGNOSIS OF HYPERTENSION 03/14/2010 719.46 Pain In Joint , Lower Leg 03/14/2010 796.2 Elevated Blood Pressure Reading Without Diagnosis Of Hypertension 03/14/2010 MUOGHALJitendra DDS, KOKO N 719.46 Pain In Joint, Lower Leg 03/14/2010 MUOGHALU DDS, KOKO N 796.2 Elevated Blood Pressure Reading Without Diagnosis Of Hypertension 03/14/2010 719.46 Pain In Joint , Lower Leg 03/14/2010 796.2 Elevated Blood Pressure Reading Without Diagnosis Of Hypertension 03/14/2010 719.46 Pain In Joint , Lower Leg 03/14/2010 796.2 Elevated Blood Pressure Reading Without Diagnosis Of Hypertension 03/14/2010 719.46 Pain In Joint , Lower Leg 03/14/2010 796.2 Elevated Blood Pressure Reading Without Diagnosis Of Hypertension 03/14/2010 MARIA LUZ VELA DDS 719.46 Pain In Joint, Lower Leg 03/14/2010 MARIA LUZ VELA DDS 796.2 Elevated Blood Pressure Reading Without Diagnosis Of Hypertension 03/14/2010 ALVAREZ DO BRIT K 719.46 Pain In Joint, Lower Leg 03/14/2010 ALVAREZ DO, BRIT K 796.2 Elevated Blood Pressure Reading Without Diagnosis Of Hypertension 03/14/2010 LORAINE LINDSAY APRNA S 719.46 PAIN IN JOINT, LOWER LEG 03/14/2010 NEFTALI RINALDI GLENNY S 796.2 ELEVATED BLOOD PRESSURE READING WITHOUT DIAGNOSIS OF HYPERTENSION 03/14/2010 ALVAREZ DO BRIT K 719.46 Pain In Joint, Lower Leg 03/14/2010 ALVAREZ DO, BRIT K 796.2 Elevated Blood Pressure Reading Without Diagnosis Of Hypertension 03/14/2010 BEBETO NICOLE MD 719.46 Pain In Joint, Lower Leg 03/14/2010 BEBETO NICOLE MD 796.2 Elevated Blood Pressure Reading Without Diagnosis Of Hypertension 03/14/2010 YOSHI VELA DDS 719.46 Pain In Joint, Lower Leg 03/14/2010 YOSHI VELA DDS 796.2 Elevated Blood Pressure Reading Without Diagnosis Of Hypertension 03/14/2010 LORAINE LINDSAY APRNA S 719.46 Pain In Joint, Lower Leg 03/14/2010 GLENNY LINDSAY APRN S 796.2 Elevated Blood Pressure Reading Without Diagnosis Of Hypertension 03/14/2010 WHITE YUESYOSHI J 719.46 Pain In Joint, Lower Leg 03/14/2010 WHITE DDSLANON J 796.2 Elevated Blood Pressure Reading Without Diagnosis Of Hypertension 03/14/2010 WHITE DDSYOSHI J 719.46 Pain In Joint, Lower Leg 03/14/2010 WHITE DDSYOSHI J 796.2 Elevated Blood Pressure Reading Without Diagnosis Of Hypertension 03/14/2010 ALVAREZ DO BRIT K 719.46 Pain In Joint, Lower Leg 03/14/2010 ALVAREZ DO BRIT K 796.2 Elevated Blood Pressure Reading Without Diagnosis Of Hypertension 03/14/2010 WHITE YUESYOSHI J 719.46 Pain In Joint, Lower Leg 03/14/2010 WHITE YUESYOSHI J 796.2 Elevated Blood Pressure Reading Without Diagnosis Of Hypertension 03/14/2010 WHITE YOSHI VO J 719.46 Pain In Joint, Lower Leg 03/14/2010 WHITE YOSHI VO J 796.2 Elevated Blood Pressure Reading Without Diagnosis Of Hypertension 08/31/2010 Ot 540.1 ABSCESS OF APPENDIX 08/31/2010 Ot V12.59 HX- CIRCULATORY SYST DIS,NEC 09/02/2010 Ot 592.1 09/02/2010 Ot 789.09 12/23/2010 600.01 BPH W/O OBSTRUCTUION 12/23/2010 715.00 OSTEOARTHROSIS GENERALIZED INVOLVING UNSPECIFIED SITE 12/23/2010 600.01 BPH W/O OBSTRUCTUION 12/23/2010 715.00 OSTEOARTHROSIS GENERALIZED INVOLVING UNSPECIFIED SITE 12/23/2010 KOKO CONLEY DDS N 600.01 BPH W/O OBSTRUCTUION 12/23/2010 KOKO CONLEY DDS N 715.00 OSTEOARTHROSIS GENERALIZED INVOLVING UNSPECIFIED SITE 12/23/2010 600.01 BPH W/O OBSTRUCTUION 12/23/2010 715.00 OSTEOARTHROSIS GENERALIZED INVOLVING UNSPECIFIED SITE 12/23/2010 600.01 BPH W/O OBSTRUCTUION 12/23/2010 715.00 OSTEOARTHROSIS GENERALIZED INVOLVING UNSPECIFIED SITE 12/23/2010 600.01 BPH W/O OBSTRUCTUION 12/23/2010 715.00 OSTEOARTHROSIS GENERALIZED INVOLVING UNSPECIFIED SITE 12/23/2010 MIRIAN DDSMARIA LUZ D 600.01 BPH W/O OBSTRUCTUION 12/23/2010 MIRIAN DDSMARIA LUZ 715.00 OSTEOARTHROSIS GENERALIZED INVOLVING UNSPECIFIED SITE 12/23/2010 BRIT ALVAREZ DO K 600.01 BPH W/O OBSTRUCTUION 12/23/2010 ALVAREZ DOLISAA K 715.00 OSTEOARTHROSIS GENERALIZED INVOLVING UNSPECIFIED SITE 12/23/2010 GLENNY LINDSAY APRN S 600.01 BPH W/O OBSTRUCTUION 12/23/2010 GLENNY LINDSAY APRN S 715.00 OSTEOARTHROSIS GENERALIZED INVOLVING UNSPECIFIED SITE 12/23/2010 BRIT ALVAREZ DO K 600.01 BPH W/O OBSTRUCTUION 12/23/2010 BRIT ALVAREZ DO K 715.00 OSTEOARTHROSIS GENERALIZED INVOLVING UNSPECIFIED SITE 12/23/2010 BEBETO NICOLE MD 600.01 BPH W/O OBSTRUCTUION 12/23/2010 BEBETO NICOLE MD 715.00 OSTEOARTHROSIS GENERALIZED INVOLVING UNSPECIFIED SITE 12/23/2010 WHITE DDS, YOSHI J 600.01 BPH W/O OBSTRUCTUION 12/23/2010 WHITE DDS YOSHI J 715.00 OSTEOARTHROSIS GENERALIZED INVOLVING UNSPECIFIED SITE 12/23/2010 GLENNY LINDSAY APRN S 600.01 BPH W/O OBSTRUCTUION 12/23/2010 GLENNY LINDSAY APRN S 715.00 OSTEOARTHROSIS GENERALIZED INVOLVING UNSPECIFIED SITE 12/23/2010 WHITE DDS, YOSHI J 600.01 BPH W/O OBSTRUCTUION 12/23/2010 WHITE DDS, YOSHI J 715.00 OSTEOARTHROSIS GENERALIZED INVOLVING UNSPECIFIED SITE 12/23/2010 WHITE DDS, YOSHI J 600.01 BPH W/O OBSTRUCTUION 12/23/2010 WHITE DDS, YOSHI J 715.00 OSTEOARTHROSIS GENERALIZED INVOLVING UNSPECIFIED SITE 12/23/2010 ANTONIO DOLISAA K 600.01 BPH W/O OBSTRUCTUION 12/23/2010 LISA ALVAREZ DOA K 715.00 OSTEOARTHROSIS GENERALIZED INVOLVING UNSPECIFIED SITE 12/23/2010 WHITE DDS, YOSHI J 600.01 BPH W/O OBSTRUCTUION 12/23/2010 MIRIAN TURNERSYOSHI 715.00 OSTEOARTHROSIS GENERALIZED INVOLVING UNSPECIFIED SITE 12/23/2010 MIRIAN TURNERSYOSHI J 600.01 BPH W/O OBSTRUCTUION 12/23/2010 WHITE YUES, YOSHI Johnson 715.00 OSTEOARTHROSIS GENERALIZED INVOLVING UNSPECIFIED SITE 10/09/2011 599.70 HEMATURIA 10/09/2011 724.5 BACK PAIN, GENERAL 10/09/2011 786.05 SHORTNESS OF BREATH 10/09/2011 788.42 POLYURIA 10/09/2011 789.00 ABDOMINAL PAIN UNSPECIFIED SITE 10/09/2011 599.70 Hematuria 10/09/2011 724.5 BACK PAIN, GENERAL 10/09/2011 786.05 Shortness Of Breath 10/09/2011 788.42 Polyuria 10/09/2011 789.00 Abdominal Pain Unspecified Site 10/09/2011 MUOGHALU DDS, KOKO N 599.70 Hematuria 10/09/2011 MUOGHALU DDS, KOKO N 724.5 BACK PAIN, GENERAL 10/09/2011 MUOGHALU DDS, KOKO N 786.05 Shortness Of Breath 10/09/2011 MUOGHALU DDS, KOKO N 788.42 Polyuria 10/09/2011 MUOGHALU DDS, KOKO N 789.00 Abdominal Pain Unspecified Site 10/09/2011 599.70 Hematuria 10/09/2011 724.5 BACK PAIN, GENERAL 10/09/2011 786.05 Shortness Of Breath 10/09/2011 788.42 Polyuria 10/09/2011 789.00 Abdominal Pain Unspecified Site 10/09/2011 599.70 Hematuria 10/09/2011 724.5 BACK PAIN, GENERAL 10/09/2011 786.05 Shortness Of Breath 10/09/2011 788.42 Polyuria 10/09/2011 789.00 Abdominal Pain Unspecified Site 10/09/2011 599.70 Hematuria 10/09/2011 724.5 BACK PAIN, GENERAL 10/09/2011 786.05 Shortness Of Breath 10/09/2011 788.42 Polyuria 10/09/2011 789.00 Abdominal Pain Unspecified Site 10/09/2011 MIRIAN DDS, MARIA LUZ Luo 599.70 Hematuria 10/09/2011 WHITE DDS, MARIA LUZ D 724.5 BACK PAIN, GENERAL 10/09/2011 WHITE DDS, MARIA LUZ D 786.05 Shortness Of Breath 10/09/2011 WHITE DDS, MARIA LUZ D 788.42 Polyuria 10/09/2011 WHITE DDS, MARIA LUZ D 789.00 Abdominal Pain Unspecified Site 10/09/2011 ALVAREZ DO, BRIT K 599.70 Hematuria 10/09/2011 ALVAREZ DO, BRIT K 724.5 BACK PAIN, GENERAL 10/09/2011 ALVAREZ DO, BRIT K 786.05 Shortness Of Breath 10/09/2011 ALVAREZ DO, BRIT K 788.42 Polyuria 10/09/2011 ALVAREZ DO, BRIT K 789.00 Abdominal Pain Unspecified Site 10/09/2011 NEFTALI CUSTODIAL MANAGER GLENNY S 599.70 HEMATURIA 10/09/2011 NEFTALI CUSTODIAL MANAGER GLENNY S 724.5 BACK PAIN, GENERAL 10/09/2011 NEFTALI CUSTODIAL MANAGER GLENNY S 786.05 SHORTNESS OF BREATH 10/09/2011 NEFTALI CUSTODIAL MANAGER GLENNY S 788.42 POLYURIA 10/09/2011 NEFTALI CUSTODIAL MANAGER, GLENNY S 789.00 ABDOMINAL PAIN UNSPECIFIED SITE 10/09/2011 ALVAREZ DO, BRIT K 599.70 Hematuria 10/09/2011 ALVAREZ DO, BRIT K 724.5 BACK PAIN, GENERAL 10/09/2011 ALVAREZ DO, BRIT K 786.05 Shortness Of Breath 10/09/2011 ALVAREZ DO, BRIT K 788.42 Polyuria 10/09/2011 ALVAREZ DO, BRIT K 789.00 Abdominal Pain Unspecified Site 10/09/2011 BEBETO NICOLE MD 599.70 Hematuria 10/09/2011 BEBETO NICOLE MD 724.5 BACK PAIN, GENERAL 10/09/2011 BEBETO NICOLE MD 786.05 Shortness Of Breath 10/09/2011 BEBETO NICOLE MD 788.42 Polyuria 10/09/2011 BEBETO NICOLE MD 789.00 Abdominal Pain Unspecified Site 10/09/2011 WHITE DDS, YOSHI J 599.70 Hematuria 10/09/2011 WHITE DDS, YOSHI J 724.5 BACK PAIN, GENERAL 10/09/2011 WHITE DDS, YOSHI J 786.05 Shortness Of Breath 10/09/2011 WHITE DDS, YOSHI J 788.42 Polyuria 10/09/2011 WHITE DDS, YOSHI J 789.00 Abdominal Pain Unspecified Site 10/09/2011 NEFTALI GEORGEN, GLENNY S 599.70 Hematuria 10/09/2011 NEFTALI CUSTODIAL MANAGER, GLENNY S 724.5 BACK PAIN, GENERAL 10/09/2011 NEFTALI GEORGEN, GLENNY S 786.05 Shortness Of Breath 10/09/2011 NEFTALI CUSTODIAL MANAGER, GLENNY S 788.42 Polyuria 10/09/2011 NEFTALI CUSTODIAL MANAGER, GLENNY S 789.00 Abdominal Pain Unspecified Site 10/09/2011 WHITE DDS, YOSHI J 599.70 Hematuria 10/09/2011 WHITE DDS, YOSHI J 724.5 BACK PAIN, GENERAL 10/09/2011 WHITE DDS, YOSHI J 786.05 Shortness Of Breath 10/09/2011 WHITE DDS, YOSHI J 788.42 Polyuria 10/09/2011 WHITE DDS, YOSHI J 789.00 Abdominal Pain Unspecified Site 10/09/2011 WHITE DDS, YOSHI J 599.70 Hematuria 10/09/2011 WHITE DDS, YOSHI J 724.5 BACK PAIN, GENERAL 10/09/2011 WHITE DDS, YOSHI J 786.05 Shortness Of Breath 10/09/2011 WHITE DDS, YOSHI J 788.42 Polyuria 10/09/2011 WHITE DDS, YOSHI J 789.00 Abdominal Pain Unspecified Site 10/09/2011 ALVAREZ DO, BRIT K 599.70 Hematuria 10/09/2011 ALVAREZ DO, BRIT K 724.5 BACK PAIN, GENERAL 10/09/2011 ALVAREZ DO, BRIT K 786.05 Shortness Of Breath 10/09/2011 ALVAREZ DO, BRIT K 788.42 Polyuria 10/09/2011 ALVAREZ DO, BRIT K 789.00 Abdominal Pain Unspecified Site 10/09/2011 WHITE DDS, YOSHI J 599.70 Hematuria 10/09/2011 WHITE DDS, YOSHI J 724.5 BACK PAIN, GENERAL 10/09/2011 WHITE DDS, YOSHI J 786.05 Shortness Of Breath 10/09/2011 WHITE DDS, YOSHI J 788.42 Polyuria 10/09/2011 WHITE DDS, YOSHI J 789.00 Abdominal Pain Unspecified Site 10/09/2011 WHITE DDS, YOSHI J 599.70 Hematuria 10/09/2011 WHITE DDS, YOSHI J 724.5 BACK PAIN, GENERAL 10/09/2011 WHITE DDS, YOSHI J 786.05 Shortness Of Breath 10/09/2011 WHITE DDS, YOSHI J 788.42 Polyuria 10/09/2011 WHITE DDS, YOSHI J 789.00 Abdominal Pain Unspecified Site 01/08/2012 780.79 OTHER MALAISE AND FATIGUE 01/08/2012 780.79 Other Malaise And Fatigue 01/08/2012 KOKO CONLEY DDS 780.79 Other Malaise And Fatigue 01/08/2012 780.79 Other Malaise And Fatigue 01/08/2012 780.79 Other Malaise And Fatigue 01/08/2012 780.79 Other Malaise And Fatigue 01/08/2012 MARIA LUZ VELA DDS 780.79 Other Malaise And Fatigue 01/08/2012 BRIT ALVAREZ DO 780.79 Other Malaise And Fatigue 01/08/2012 GLENNY LINDSAY APRN 780.79 OTHER MALAISE AND FATIGUE 01/08/2012 BRIT ALVAREZ DO 780.79 Other Malaise And Fatigue 01/08/2012 BEBETO NICOLE MD 780.79 Other Malaise And Fatigue 01/08/2012 WHITE DDSYOSHI 780.79 Other Malaise And Fatigue 01/08/2012 GLENNY LINDSAY APRN 780.79 Other Malaise And Fatigue 01/08/2012 WHITE DDSYOSHI 780.79 Other Malaise And Fatigue 01/08/2012 WHITE DDSYOSHI 780.79 Other Malaise And Fatigue 01/08/2012 BRIT ALVAREZ DO 780.79 Other Malaise And Fatigue 01/08/2012 WHITE DDSYOSHI 780.79 Other Malaise And Fatigue 01/08/2012 WHITE DDSYOSHI 780.79 Other Malaise And Fatigue 03/02/2012 780.57 UNSPECIFIED SLEEP APNEA 03/02/2012 780.57 UNSPECIFIED SLEEP APNEA 03/02/2012 MUOGHALU DDS, KOKO N 780.57 UNSPECIFIED SLEEP APNEA 03/02/2012 780.57 UNSPECIFIED SLEEP APNEA 03/02/2012 780.57 UNSPECIFIED SLEEP APNEA 03/02/2012 780.57 UNSPECIFIED SLEEP APNEA 03/02/2012 WHITE YUESMARIA LUZ 780.57 UNSPECIFIED SLEEP APNEA 03/02/2012 ALVAREZ DO BRIT K 780.57 UNSPECIFIED SLEEP APNEA 03/02/2012 GLENNY LINDSYA APRN S 780.57 UNSPECIFIED SLEEP APNEA 03/02/2012 ALVAREZ DOBRIT K 780.57 UNSPECIFIED SLEEP APNEA 03/02/2012 COREY OQUENDO, BEBETO 780.57 UNSPECIFIED SLEEP APNEA 03/02/2012 WHITE DDS, YOSHI J 780.57 UNSPECIFIED SLEEP APNEA 03/02/2012 GLENNY LINDSAY APRN S 780.57 UNSPECIFIED SLEEP APNEA 03/02/2012 WHITE DDS, YOSHI J 780.57 UNSPECIFIED SLEEP APNEA 03/02/2012 WHITE DDS, YOSHI J 780.57 UNSPECIFIED SLEEP APNEA 03/02/2012 BRIT ALVAREZ DO K 780.57 UNSPECIFIED SLEEP APNEA 03/02/2012 WHITE DDS, YOSHI J 780.57 UNSPECIFIED SLEEP APNEA 03/02/2012 WHITE DDS, YOSHI J 780.57 UNSPECIFIED SLEEP APNEA 10/05/2012 401.1 HYPERTENSION, BENIGN ESSENTIAL 10/05/2012 724.2 LUMBAGO 10/05/2012 401.1 HYPERTENSION, BENIGN ESSENTIAL 10/05/2012 724.2 LUMBAGO 10/05/2012 MUOGHALU DDS, KOKO N 401.1 HYPERTENSION, BENIGN ESSENTIAL 10/05/2012 MUOGHALU DDS, KOKO N 724.2 LUMBAGO 10/05/2012 401.1 HYPERTENSION, BENIGN ESSENTIAL 10/05/2012 724.2 LUMBAGO 10/05/2012 401.1 HYPERTENSION, BENIGN ESSENTIAL 10/05/2012 724.2 LUMBAGO 10/05/2012 401.1 HYPERTENSION, BENIGN ESSENTIAL 10/05/2012 724.2 LUMBAGO 10/05/2012 MARIA LUZ VELA DDS 401.1 HYPERTENSION, BENIGN ESSENTIAL 10/05/2012 WHITE MARIA LUZ VO 724.2 LUMBAGO 10/05/2012 BRIT ALVAREZ DO K 401.1 HYPERTENSION, BENIGN ESSENTIAL 10/05/2012 ALVAREZ DO, BRIT K 724.2 LUMBAGO 10/05/2012 LORAINE LINDSAY APRNA S 401.1 HYPERTENSION, BENIGN ESSENTIAL 10/05/2012 CAM LINDSAY APRNNDA S 724.2 LUMBAGO 10/05/2012 ALVAREZ DO, BRIT K 401.1 HYPERTENSION, BENIGN ESSENTIAL 10/05/2012 ALVAREZ DO, BRIT K 724.2 LUMBAGO 10/05/2012 BEBETO NCIOLE MD 401.1 HYPERTENSION, BENIGN ESSENTIAL 10/05/2012 BEBETO NICOLE MD 724.2 LUMBAGO 10/05/2012 WHITE DDS, YOSHI J 401.1 HYPERTENSION, BENIGN ESSENTIAL 10/05/2012 WHITE DDS, YOSHI J 724.2 LUMBAGO 10/05/2012 LORAINE LINDSAY APRNA S 401.1 HYPERTENSION, BENIGN ESSENTIAL 10/05/2012 CAM LINDSAY APRNNDA S 724.2 LUMBAGO 10/05/2012 WHITE DDS, YOSHI J 401.1 HYPERTENSION, BENIGN ESSENTIAL 10/05/2012 WHITE DDS, YOSHI J 724.2 LUMBAGO 10/05/2012 WHITE DDS, YOSHI J 401.1 HYPERTENSION, BENIGN ESSENTIAL 10/05/2012 WHITE DDS, YOSHI J 724.2 LUMBAGO 10/05/2012 ALVAREZ DO, BRIT K 401.1 HYPERTENSION, BENIGN ESSENTIAL 10/05/2012 ALVAREZ DO, BRIT K 724.2 LUMBAGO 10/05/2012 WHITE DDS, YOSHI J 401.1 HYPERTENSION, BENIGN ESSENTIAL 10/05/2012 WHITE DDS, YOSHI J 724.2 LUMBAGO 10/05/2012 WHITE DDS, YOSHI J 401.1 HYPERTENSION, BENIGN ESSENTIAL 10/05/2012 WHITE DDS, YOSHI J 724.2 LUMBAGO 03/14/2013 327.23 sleep apnea 03/14/2013 327.23 sleep apnea 03/14/2013 327.23 sleep apnea 03/14/2013 WHITE DDSMARIA LUZ 327.23 sleep apnea 03/14/2013 ALVAREZ DO BRIT K 327.23 sleep apnea 03/14/2013 ALVAREZ DO BRIT K 327.23 sleep apnea 03/14/2013 BEBETO NICOLE MD 327.23 sleep apnea 03/14/2013 WHITE DDS, YOSHI J 327.23 sleep apnea 03/14/2013 GLENNY LINDSAY APRN 327.23 sleep apnea 03/14/2013 WHITE DDS, YOSHI J 327.23 sleep apnea 03/14/2013 WHITE DDS, YOSHI J 327.23 sleep apnea 03/14/2013 ALVAREZ DOBRIT K 327.23 sleep apnea 03/14/2013 WHITE DDS, YOSHI J 327.23 sleep apnea 03/14/2013 WHITE DDS, YOSHI J 327.23 sleep apnea 09/19/2013 ALVAREZ DOLISAA K V03.82 PPV23 (PNEUMOVAX) DX 09/19/2013 ALVAREZ DO BRIT K V04.81 FLU SHOT 09/19/2013 ALVAREZ DOBRIT K V03.82 PPV23 (PNEUMOVAX) DX 09/19/2013 ALVAREZ DOBRIT K V04.81 FLU SHOT 09/19/2013 BEBETO NICOLE MD V03.82 PPV23 (PNEUMOVAX) DX 09/19/2013 BEBETO NICOLE MD V04.81 FLU SHOT 09/19/2013 WHITE DDS, YOSHI J V03.82 PPV23 (PNEUMOVAX) DX 09/19/2013 WHITE DDS, YOSHI J V04.81 FLU SHOT 09/19/2013 GLENNY LINDSAY APRN S V03.82 PPV23 (PNEUMOVAX) DX 09/19/2013 GLENNY LINDSAY APRN S V04.81 FLU SHOT 09/19/2013 WHITE DDS, YOSHI J V03.82 PPV23 (PNEUMOVAX) DX 09/19/2013 WHITE DDS, YOSHI J V04.81 FLU SHOT 09/19/2013 WHITE DDS, YOSHI J V03.82 PPV23 (PNEUMOVAX) DX 09/19/2013 WHITE DDS, YOSHI J V04.81 FLU SHOT 09/19/2013 ALVAREZ DOLISAA K V03.82 PPV23 (PNEUMOVAX) DX 09/19/2013 ALVAREZ DO BRIT K V04.81 FLU SHOT 09/19/2013 WHITE DDS, YOSHI J V03.82 PPV23 (PNEUMOVAX) DX 09/19/2013 WHITE DDS, YOSHI J V04.81 FLU SHOT 09/19/2013 WHITE DDS, YOSHI J V03.82 PPV23 (PNEUMOVAX) DX 09/19/2013 WHITE DDS, YOSHI J V04.81 FLU SHOT 03/28/2014 BEBETO NICOLE MD 578.1 BLOOD IN STOOL 03/28/2014 BEBETO NICOLE MD 601.9 PROSTATITIS UNSPECIFIED 03/28/2014 WHITE DDS, YOSHI J 578.1 BLOOD IN STOOL 03/28/2014 WHITE DDS, YOSHI J 601.9 PROSTATITIS UNSPECIFIED 03/28/2014 CAM LINDSAY APRNNDA S 578.1 BLOOD IN STOOL 03/28/2014 NEFTALI RINALDI GLENNY S 601.9 PROSTATITIS UNSPECIFIED 03/28/2014 WHITE DDS, YOSHI J 578.1 BLOOD IN STOOL 03/28/2014 WHITE DDS, YOSHI J 601.9 PROSTATITIS UNSPECIFIED 03/28/2014 WHITE DDS, YOSHI J 578.1 BLOOD IN STOOL 03/28/2014 WHITE DDS, YOSHI J 601.9 PROSTATITIS UNSPECIFIED 03/28/2014 BRIT ALVAREZ DO K 578.1 BLOOD IN STOOL 03/28/2014 LISA ALVAREZ DOA K 601.9 PROSTATITIS UNSPECIFIED 03/28/2014 WHITE DDS, YOSHI J 578.1 BLOOD IN STOOL 03/28/2014 WHITE DDS, YOSHI J 601.9 PROSTATITIS UNSPECIFIED 03/28/2014 WHITE DDS, YOSHI J 578.1 BLOOD IN STOOL 03/28/2014 WHITE DDS, YOSHI J 601.9 PROSTATITIS UNSPECIFIED 04/17/2014 JARROD OQUENDO, PINO Breen Ot 211.3 BENIGN NEOPLASM LG BOWEL 04/17/2014 JARROD OQUENDO, PINO Breen Ot 562.10 DIVERTICULOSIS COLON (W/O MENT OF HEMORR 08/15/2014 BRIT ALVAREZ DO K V04.81 FLU SHOT 08/15/2014 WHITE DDS, YOSHI J V04.81 FLU SHOT 08/15/2014 WHITE DDS, YOSHI J V04.81 FLU SHOT 11/04/2014 LISA ALVAREZ DOA K Ot 272.0 PURE HYPERCHOLESTEROLEM 11/04/2014 LISA ALVAREZ DOA K Ot 401.9 HYPERTENSION NOS 11/04/2014 BRIT ALVAREZ DO Ot 553.3 DIAPHRAGMATIC HERNIA 11/04/2014 BRIT ALVAREZ DO Ot 591 HYDRONEPHROSIS 11/04/2014 BRIT ALVAREZ DO Ot 592.1 CALCULUS OF URETER 11/04/2014 BRIT ALVAREZ DO Ot 600.00 HYPERTROPHY (BENIGN) OF PROSTATE W/O URI 11/04/2014 BRIT ALVAREZ DO Ot 715.90 OSTEOARTHROS NOS-UNSPEC 11/04/2014 BRIT ALVAREZ DO Ot 780.57 UNSPECIFIED SLEEP APNEA 11/06/2014 Ot 562.10 11/06/2014 Ot 599.70 11/06/2014 Ot 600.00 11/06/2014 JARROD OQUENDO, PINO Breen Ot V72.84 11/07/2014 WALKER OQUENDO, AMAN Espinosa Ot 592.1 CALCULUS OF URETER 11/10/2014 WALKER OQUENDO, AMAN Espinosa Ot 592.1 11/10/2014 WALKER OQUENDO, AMNA Espinosa Ot V72.81 11/10/2014 WALKER OQUENDO, AMAN Espinosa Ot V74.8 11/14/2014 WALKER OQUENDO, AMAN Espinosa Ot 592.1 11/14/2014 WALKER OQUENDO, AMAN Espinosa Ot V72.84 11/14/2014 WALKER OQUENDO, AMAN Espinosa Ot 592.1 11/14/2014 WALKER OQUENDO, AMAN Espinosa Ot V72.84 11/14/2014 WALKER OQUENDO, AMAN Espinosa Ot 592.1 11/14/2014 WALKER OQUENDO, AMAN Espinosa Ot V72.84 11/14/2014 WALKER OQUENDO, AMAN Espinosa Ot 592.1 11/14/2014 WALKER OQUENDO, AMAN Espinosa Ot V72.84 11/14/2014 WALKER OQUENDO, AMAN Espinosa Ot 592.1 11/14/2014 WALKER OQUENDO, AMAN Espinosa Ot V72.84 11/15/2014 WALKER OQUENDO, AMAN Espinosa Ot 592.1 CALCULUS OF URETER 11/15/2014 WALKER OQUENDO, AMAN Espinosa Ot V74.8 SCREEN-BACTERIAL DIS NEC 11/28/2014 WALKER OQUENDO, AMAN Espinosa Ot 592.1 CALCULUS OF URETER 12/04/2014 WALKER OQUENDO, AMAN Espinosa Ot 592.1 12/04/2014 WALKER OQUENDO, AMAN A Ot V72.81 12/04/2014 WALKER OQUENDO, AMAN A Ot V74.8 12/18/2014 Ot 562.10 12/18/2014 Ot 599.70 12/18/2014 Ot 600.00 12/18/2014 JARROD OQUENDO, PINO Breen Ot V72.84 12/18/2014 WALKER OQUENDO, AMAN A Ot 592.1 12/18/2014 WALKER OQUENDO, AMAN A Ot V72.81 12/18/2014 WALKER OQUENDO, AMAN A Ot V74.8 12/18/2014 WALKER OQUENDO, AMAN A Ot 592.1 12/18/2014 WALKER OQUENDO, AMAN A Ot V72.84 12/18/2014 WALKER OQUENDO, AMAN A Ot 592.1 12/18/2014 WALKER OQUENDO, AMAN A Ot V45.89 12/19/2014 Ot 562.10 12/19/2014 Ot 599.70 12/19/2014 Ot 600.00 12/19/2014 JARROD OQUENDO, PINO M Ot V72.84 12/19/2014 WALKER OQUENDO, AMAN A Ot 592.1 12/19/2014 WALKER OQUENDO, AMAN A Ot V72.81 12/19/2014 WALKER OQUENDO, AMAN A Ot V74.8 12/19/2014 WALKER OQUENDO, AMAN A Ot 592.1 12/19/2014 WALKER OQUENDO, AMAN A Ot V72.84 12/19/2014 WALKER OQUENDO, AMAN A Ot 592.1 12/19/2014 WALKER OQUENDO, AMAN A Ot V45.89 12/19/2014 WALKER OQUENDO, AMAN A Ot 592.1 12/19/2014 WALKER OQUENDO, AMAN A Ot V45.89 12/20/2014 WALKER OQUENDO, AMAN A Ot 592.9 12/20/2014 WALKER OQUENDO, AMAN A Ot 592.1 12/20/2014 WALKER OQUENDO, AMAN A Ot V45.89 12/26/2014 WHITE DDS, YOSHI J 592.0 CALCULUS OF KIDNEY 01/04/2015 WALKER OQUENDO, AMAN Espinosa Ot 592.1 01/04/2015 WALKER OQUENDO, AMAN Espinosa Ot V45.89 01/05/2015 WALKER OQUENDO, AMAN Espinosa Ot 592.9 01/29/2015 WALKER OQUENDO, AMAN Espinosa Ot 592.1 01/29/2015 WALKER OQUENDO, AMAN Espinosa Ot V72.81 01/29/2015 WALKER OQUENDO, AMAN Espinosa Ot V74.8 01/29/2015 WALKER OQUENDO, AMAN Espinosa Ot 592.1 01/29/2015 WALKER OQUENDO, AMAN Espinosa Ot V45.89 03/19/2015 WALKER OQUENDO, AMAN Espinosa Ot 592.9 URINARY CALCULUS NOS 09/08/2016 Ot 562.10 DIVERTICULOSIS COLON (W/O MENT OF HEMORR 09/08/2016 Ot 599.70 HEMATURIA, UNSPECIFIED 09/08/2016 Ot 600.00 HYPERTROPHY (BENIGN) OF PROSTATE W/O URI 09/08/2016 JARROD OQUENDO, PINO Breen Ot V72.84 EXAM PRE-OPERATIVE NOS 09/08/2016 AMAN CARDOSO MD Ot 592.1 CALCULUS OF URETER 09/08/2016 AMAN CARDOSO MD Ot V72.81 [id number] CARDIOVASCULAR 09/08/2016 AMAN CARDOSO MD Ot V74.8 SCREEN-BACTERIAL DIS NEC 09/08/2016 AMAN CARDOSO MD Ot 592.1 CALCULUS OF URETER 09/08/2016 AMAN CARDOSO MD Ot V72.84 EXAM PRE-OPERATIVE NOS 09/08/2016 AMAN CARDOSO MD Ot 592.1 CALCULUS OF URETER 09/08/2016 AMAN CARDOSO MD Ot V45.89 POSTSURGICAL STATES NEC 09/08/2016 AMAN CARDOSO MD Ot 592.1 CALCULUS OF URETER 09/08/2016 AMAN CARDOSO MD Ot V45.89 POSTSURGICAL STATES NEC 09/08/2016 AMAN CARDOSO MD Ot 592.9 URINARY CALCULUS NOS 09/09/2016 GLENNY LINDSAY Ot G47.33 OBSTRUCTIVE SLEEP APNEA (ADULT) (PEDIATR 09/09/2016 NEFTALI, GLENNY DELIVERY ARCHITECT Ot G47.33 OBSTRUCTIVE SLEEP APNEA (ADULT) (PEDIATR 01/01/2017 Ot 562.10 DIVERTICULOSIS COLON (W/O MENT OF HEMORR 01/01/2017 Ot 599.70 HEMATURIA, UNSPECIFIED 01/01/2017 Ot 600.00 HYPERTROPHY (BENIGN) OF PROSTATE W/O URI 01/01/2017 JARROD OQUENDO, PINO Breen Ot V72.84 EXAM PRE-OPERATIVE NOS 01/01/2017 AMAN CARDOSO MD Ot 592.1 CALCULUS OF URETER 01/01/2017 AMAN CARDOOS MD Ot V72.81 TMAX-BOB-FUDQAUOEA CARDIOVASCULAR 01/01/2017 AMAN CARDOSO MD Ot V74.8 SCREEN-BACTERIAL DIS NEC 01/01/2017 AMAN CARDOSO MD Ot 592.1 CALCULUS OF URETER 01/01/2017 AMAN CARDOSO MD Ot V72.84 EXAM PRE-OPERATIVE NOS 01/01/2017 AMAN CARDOSO MD Ot 592.1 CALCULUS OF URETER 01/01/2017 AMAN CARDOSO MD Ot V45.89 POSTSURGICAL STATES NEC 01/01/2017 AMAN CARDOSO MD Ot 592.1 CALCULUS OF URETER 01/01/2017 AMAN CARDOSO MD Ot V45.89 POSTSURGICAL STATES NEC 01/01/2017 AMAN CARDOSO MD Ot 592.9 URINARY CALCULUS NOS 01/06/2017 Jamshid VERA MD Ot E78.5 HYPERLIPIDEMIA, UNSPECIFIED 01/06/2017 Jamshid VERA MD, Ot G47.33 OBSTRUCTIVE SLEEP APNEA (ADULT) (PEDIATR 01/06/2017 Jamshid VERA MD Ot I10 ESSENTIAL (PRIMARY) HYPERTENSION 01/06/2017 Jamshid VERA MD Ot R06.02 SHORTNESS OF BREATH 01/06/2017 Jamshid VERA MD Ot Z87.891 PERSONAL HISTORY OF NICOTINE DEPENDENCE 01/11/2017 Jamshid VERA MD Ot E78.5 HYPERLIPIDEMIA, UNSPECIFIED 01/11/2017 Jamshid VERA MD Ot G47.33 OBSTRUCTIVE SLEEP APNEA (ADULT) (PEDIATR 01/11/2017 KHALID MD, M JAIDA Ot I10 ESSENTIAL (PRIMARY) HYPERTENSION 01/11/2017 Jamshid VERA MD Ot R06.02 SHORTNESS OF BREATH 01/11/2017 Jamshid VERA MD Ot Z87.891 PERSONAL HISTORY OF NICOTINE DEPENDENCE 01/16/2017 Jamshid VERA MD Ot E78.5 HYPERLIPIDEMIA, UNSPECIFIED 01/16/2017 Jamshid VERA MD Ot G47.33 OBSTRUCTIVE SLEEP APNEA (ADULT) (PEDIATR 01/16/2017 Jamshid VERA MD Ot I10 ESSENTIAL (PRIMARY) HYPERTENSION 01/16/2017 Jamshid VERA MD Ot R06.02 SHORTNESS OF BREATH 01/16/2017 Jamshid VERA MD Ot Z87.891 PERSONAL HISTORY OF NICOTINE DEPENDENCE 01/30/2017 Jamshid VERA MD Ot E78.5 HYPERLIPIDEMIA, UNSPECIFIED 01/30/2017 Jamshid VERA MD Ot G47.33 OBSTRUCTIVE SLEEP APNEA (ADULT) (PEDIATR 01/30/2017 Jamshid VERA MD Ot I10 ESSENTIAL (PRIMARY) HYPERTENSION 01/30/2017 Jamshid VERA MD Ot R06.02 SHORTNESS OF BREATH 01/30/2017 Jamshid VERA MD Ot Z87.891 PERSONAL HISTORY OF NICOTINE DEPENDENCE 03/25/2017 Jamshid VREA MD Ot E78.5 HYPERLIPIDEMIA, UNSPECIFIED 03/25/2017 Jamshid VERA MD Ot E78.5 HYPERLIPIDEMIA, UNSPECIFIED 04/09/2017 Jamshid VERA MD Ot E78.5 HYPERLIPIDEMIA, UNSPECIFIED 04/28/2017 Jamshid VERA MD Ot E78.5 HYPERLIPIDEMIA, UNSPECIFIED 04/28/2017 Jamshid VERA MD Ot G47.33 OBSTRUCTIVE SLEEP APNEA (ADULT) (PEDIATR 04/28/2017 Jamshid VERA MD Ot I10 ESSENTIAL (PRIMARY) HYPERTENSION 04/28/2017 Jamshid VERA MD Ot R06.02 SHORTNESS OF BREATH 04/28/2017 Jamshid VERA MD Ot Z87.891 PERSONAL HISTORY OF NICOTINE DEPENDENCE 04/28/2017 Jamshid VERA MD Ot E78.5 HYPERLIPIDEMIA, UNSPECIFIED 04/28/2017 Jamshid VERA MD, Ot G47.33 OBSTRUCTIVE SLEEP APNEA (ADULT) (PEDIATR 04/28/2017 Jamshid VERA MD Ot I10 ESSENTIAL (PRIMARY) HYPERTENSION 04/28/2017 Jamshid VERA MD Ot R06.02 SHORTNESS OF BREATH 04/28/2017 Jamshid VERA MD Ot Z87.891 PERSONAL HISTORY OF NICOTINE DEPENDENCE 04/28/2017 JARROD OQUENDO, PINO Breen Ot V72.84 EXAM PRE-OPERATIVE NOS 04/28/2017 AMAN CARDOSO MD Ot 592.1 CALCULUS OF URETER 04/28/2017 AMAN CARDOSO MD Ot V72.81 [id number] CARDIOVASCULAR 04/28/2017 AMAN CARDOSO MD Ot V74.8 SCREEN-BACTERIAL DIS NEC 04/28/2017 AMAN CARDOSO MD Ot 592.1 CALCULUS OF URETER 04/28/2017 AMAN CARDOSO MD A Ot V72.84 EXAM PRE-OPERATIVE NOS 04/28/2017 AMAN CARDOSO MD Ot 592.1 CALCULUS OF URETER 04/28/2017 AMAN CARDOSO MD A Ot V45.89 POSTSURGICAL STATES NEC 04/28/2017 AMAN CARDOSO MD A Ot 592.1 CALCULUS OF URETER 04/28/2017 AMAN CARDOSO MD A Ot V45.89 POSTSURGICAL STATES NEC 04/28/2017 AMAN CARDOSO MD A Ot 592.9 URINARY CALCULUS NOS 04/28/2017 Jamshid VERA MD Ot E78.5 HYPERLIPIDEMIA, UNSPECIFIED 04/28/2017 Jamshid VERA MD, Ot G47.33 OBSTRUCTIVE SLEEP APNEA (ADULT) (PEDIATR 04/28/2017 Jamshid VERA MD Ot I10 ESSENTIAL (PRIMARY) HYPERTENSION 04/28/2017 Jamshid VERA MD Ot R06.02 SHORTNESS OF BREATH 04/28/2017 Jamshid VERA MD, Ot Z87.891 PERSONAL HISTORY OF NICOTINE DEPENDENCE 04/28/2017 Jamshid VERA MD Ot E78.5 HYPERLIPIDEMIA, UNSPECIFIED 04/28/2017 Jamshid VERA MD Ot G47.33 OBSTRUCTIVE SLEEP APNEA (ADULT) (PEDIATR 04/28/2017 Jamshid VERA MD Ot I10 ESSENTIAL (PRIMARY) HYPERTENSION 04/28/2017 Jamshid VERA MD Ot R06.02 SHORTNESS OF BREATH 04/28/2017 Jamshid VERA MD Ot Z87.891 PERSONAL HISTORY OF NICOTINE DEPENDENCE 04/28/2017 Jamshid VERA MD Ot E78.5 HYPERLIPIDEMIA, UNSPECIFIED 04/28/2017 Jamshid VERA MD Ot N20.0 CALCULUS OF KIDNEY 05/06/2017 Jamshid VERA MD Ot E78.5 HYPERLIPIDEMIA, UNSPECIFIED 05/06/2017 Jamshid VERA MD Ot G47.33 OBSTRUCTIVE SLEEP APNEA (ADULT) (PEDIATR 05/06/2017 Jamshid VERA MD Ot I10 ESSENTIAL (PRIMARY) HYPERTENSION 05/06/2017 Jamshid VERA MD Ot R06.02 SHORTNESS OF BREATH 05/06/2017 Jamshid VERA MD Ot Z87.891 PERSONAL HISTORY OF NICOTINE DEPENDENCE 05/06/2017 Jamshid VERA MD Ot E78.5 HYPERLIPIDEMIA, UNSPECIFIED 05/06/2017 Jamshid VERA MD Ot G47.33 OBSTRUCTIVE SLEEP APNEA (ADULT) (PEDIATR 05/06/2017 Jamshid VERA MD Ot I10 ESSENTIAL (PRIMARY) HYPERTENSION 05/06/2017 Jamshid VERA MD Ot R06.02 SHORTNESS OF BREATH 05/06/2017 Jamshid VERA MD Ot Z87.891 PERSONAL HISTORY OF NICOTINE DEPENDENCE 05/06/2017 Jamshid VERA MD Ot N20.0 CALCULUS OF KIDNEY 08/26/2017 Jamshid VERA MD Ot N20.0 CALCULUS OF KIDNEY 08/26/2017 JARROD OQUENDO, PINO Breen Ot V72.84 EXAM PRE-OPERATIVE NOS 08/26/2017 AMAN CARDOSO MD Ot 592.1 CALCULUS OF URETER 08/26/2017 AMAN CARDOSO MD Ot V72.81 [id number] CARDIOVASCULAR 08/26/2017 AMAN CARDOSO MD Ot V74.8 SCREEN-BACTERIAL DIS NEC 08/26/2017 AMAN CARDOSO MD Ot 592.1 CALCULUS OF URETER 08/26/2017 AMAN CARDOSO MD Ot V72.84 EXAM PRE-OPERATIVE NOS 08/26/2017 AMAN CARDOSO MD Ot 592.1 CALCULUS OF URETER 08/26/2017 AMAN CARDOSO MD Ot V45.89 POSTSURGICAL STATES NEC 08/26/2017 AMAN CARDOSO MD Ot 592.1 CALCULUS OF URETER 08/26/2017 AMAN CARDOSO MD Ot V45.89 POSTSURGICAL STATES NEC 08/26/2017 AMAN CARDOSO MD Ot 592.9 URINARY CALCULUS NOS 08/26/2017 Jamshid VERA MD Ot E78.5 HYPERLIPIDEMIA, UNSPECIFIED 08/26/2017 Jamshid VERA MD Ot G47.33 OBSTRUCTIVE SLEEP APNEA (ADULT) (PEDIATR 08/26/2017 Jamshid VERA MD Ot I10 ESSENTIAL (PRIMARY) HYPERTENSION 08/26/2017 Jamshid VERA MD Ot R06.02 SHORTNESS OF BREATH 08/26/2017 Jamshid VERA MD Ot Z87.891 PERSONAL HISTORY OF NICOTINE DEPENDENCE 08/26/2017 Jamshid VERA MD Ot E78.5 HYPERLIPIDEMIA, UNSPECIFIED 08/26/2017 Jamshid VERA MD Ot G47.33 OBSTRUCTIVE SLEEP APNEA (ADULT) (PEDIATR 08/26/2017 Jamshid VERA MD Ot I10 ESSENTIAL (PRIMARY) HYPERTENSION 08/26/2017 Jamshid VERA MD Ot R06.02 SHORTNESS OF BREATH 08/26/2017 Jamshid VERA MD Ot Z87.891 PERSONAL HISTORY OF NICOTINE DEPENDENCE 08/26/2017 Jamshid VERA MD Ot E78.5 HYPERLIPIDEMIA, UNSPECIFIED 08/26/2017 Jamshid VERA MD Ot N20.0 CALCULUS OF KIDNEY 08/26/2017 Jamshid VERA MD, Ot N20.0 CALCULUS OF KIDNEY 09/09/2017 Jamshid VERA MD Ot M79.89 OTHER SPECIFIED SOFT TISSUE DISORDERS 09/09/2017 Jamshid VERA MD, Ot N20.0 CALCULUS OF KIDNEY 02/03/2018 JARROD OQUENDO, PINO Breen Ot V72.84 EXAM PRE-OPERATIVE NOS 02/03/2018 AMAN CARDOSO MD Ot 592.1 CALCULUS OF URETER 02/03/2018 AMAN CARDOSO MD Ot V72.81 [id number] CARDIOVASCULAR 02/03/2018 AMAN CARDOSO MD Ot V74.8 SCREEN-BACTERIAL DIS NEC 02/03/2018 AMAN CARDOSO MD Ot 592.1 CALCULUS OF URETER 02/03/2018 AMAN CARDOSO MD Ot V72.84 EXAM PRE-OPERATIVE NOS 02/03/2018 AMAN CARDOSO MD Ot 592.1 CALCULUS OF URETER 02/03/2018 AMAN CARDOSO MD Ot V45.89 POSTSURGICAL STATES NEC 02/03/2018 AMAN CARDOSO MD Ot 592.1 CALCULUS OF URETER 02/03/2018 AMAN CARDOSO MD Ot V45.89 POSTSURGICAL STATES NEC 02/03/2018 AMAN CARDOSO MD A Ot 592.9 URINARY CALCULUS NOS 02/03/2018 Jamshid VERA MD Ot E78.5 HYPERLIPIDEMIA, UNSPECIFIED 02/03/2018 Jamshid VERA MD, Ot G47.33 OBSTRUCTIVE SLEEP APNEA (ADULT) (PEDIATR 02/03/2018 Jamshid VERA MD Ot I10 ESSENTIAL (PRIMARY) HYPERTENSION 02/03/2018 Jamshid VERA MD Ot R06.02 SHORTNESS OF BREATH 02/03/2018 Jamshid VERA MD Ot Z87.891 PERSONAL HISTORY OF NICOTINE DEPENDENCE 02/03/2018 Jamshid VERA MD Ot E78.5 HYPERLIPIDEMIA, UNSPECIFIED 02/03/2018 Jamshid VERA MD, Ot G47.33 OBSTRUCTIVE SLEEP APNEA (ADULT) (PEDIATR 02/03/2018 Jamshid VERA MD Ot I10 ESSENTIAL (PRIMARY) HYPERTENSION 02/03/2018 Jamshid VERA MD Ot R06.02 SHORTNESS OF BREATH 02/03/2018 Jamshid VERA MD Ot Z87.891 PERSONAL HISTORY OF NICOTINE DEPENDENCE 02/03/2018 Jamshid VERA MD, Ot E78.5 HYPERLIPIDEMIA, UNSPECIFIED 02/03/2018 Jamshid VERA MD, Ot N20.0 CALCULUS OF KIDNEY 02/03/2018 Jamshid VERA MD, Ot M79.89 OTHER SPECIFIED SOFT TISSUE DISORDERS 02/03/2018 Jamshid VERA MD, Ot N20.0 CALCULUS OF KIDNEY 02/05/2018 FRANKI MILLAN Ot M47.816 SPONDYLOSIS W/O MYELOPATHY OR RADICULOPA 02/05/2018 FRANKI MILLAN Ot M48.07 SPINAL STENOSIS, LUMBOSACRAL REGION 02/05/2018 FRANKI MILLAN Ot M51.17 INTVRT DISC DISORDERS W RADICULOPATHY, L Procedures Code Description Performed By Performed On 47.01 LAPAROSCOP APPENDECTOMY 08/25/2010 34393 ROUTINE VENIPUNCTURE 10/05/2012 84199 ESR/SED RATE 10/05/2012 97753 LIPID PANEL 10/05/2012 02968 CBC 10/05/2012 97286 CMP 10/05/2012 1271096 GFR CALC (RESULT ONLY) 10/05/2012 37244 XRAY THORACIC SPINE 3 VIEWS 10/12/2012 71994 XRAY KNEE LEFT 3 VIEWS 10/12/2012 54918 ROUTINE VENIPUNCTURE 03/14/2013 85192 LIPID PANEL 03/14/2013 53211 PSA TOTAL 03/14/2013 37922 UA LONG DIP 04/05/2013 99357 ROUTINE VENIPUNCTURE 01/23/2014 07151 TSH 01/23/2014 65145 CBC 01/23/2014 60866 CMP 01/23/2014 45481 LIPID PANEL 01/23/2014 5882499 GFR CALC (RESULT ONLY) 01/23/2014 36418 UA LONG DIP 03/28/2014 [place] 03/29/2014 Urology Aman Cardoso 11/07/2014 Results Test Result Range CBC With Differential/Platelet - 11/11/16 11:30 WBC 4.2 x10E3/uL 3.4-10.8 RBC 4.82 x10E6/uL 4.14-5.80 Hemoglobin 15.7 g/dL 12.6-17.7 Hematocrit 45.0 % 37.5-51.0 MCV 93 fL 79-97 MCH 32.6 pg 26.6-33.0 MCHC 34.9 g/dL 31.5-35.7 RDW 13.5 % 12.3-15.4 Platelets 192 x10E3/uL 150-379 Neutrophils 57 % Lymphs 29 % Monocytes 10 % Eos 3 % Basos 0 % Neutrophils (Absolute) 2.4 x10E3/uL 1.4-7.0 Lymphs (Absolute) 1.2 x10E3/uL 0.7-3.1 Monocytes(Absolute) 0.4 x10E3/uL 0.1-0.9 Eos (Absolute) 0.1 x10E3/uL 0.0-0.4 Baso (Absolute) 0.0 x10E3/uL 0.0-0.2 Immature Granulocytes 1 % Immature Grans (Abs) 0.0 x10E3/uL 0.0-0.1 Comp. Metabolic Panel (14) - 11/11/16 11:30 Glucose, Serum 101 mg/dL 65-99 BUN 26 mg/dL 8-27 Creatinine, Serum 1.05 mg/dL 0.76-1.27 eGFR If NonAfricn Am 74 mL/min/1.73 >59 eGFR If Africn Am 85 mL/min/1.73 >59 BUN/Creatinine Ratio 25 10-22 Sodium, Serum 142 mmol/L 134-144 Potassium, Serum 4.2 mmol/L 3.5-5.2 Chloride, Serum 102 mmol/L 96-106 Carbon Dioxide, Total 25 mmol/L 18-29 Calcium, Serum 9.4 mg/dL 8.6-10.2 Protein, Total, Serum 6.8 g/dL 6.0-8.5 Albumin, Serum 4.7 g/dL 3.6-4.8 Globulin, Total 2.1 g/dL 1.5-4.5 A/G Ratio 2.2 1.1-2.5 Bilirubin, Total 0.4 mg/dL 0.0-1.2 Alkaline Phosphatase, S 60 IU/L 39-117 AST (SGOT) 24 IU/L 0-40 ALT (SGPT) 27 IU/L 0-44 Lipid Panel - 11/11/16 11:30 Cholesterol, Total 204 mg/dL 100-199 Triglycerides 96 mg/dL 0-149 HDL Cholesterol 44 mg/dL >39 VLDL Cholesterol Ko 19 mg/dL 5-40 LDL Cholesterol Calc 141 mg/dL 0-99 C-Reactive Protein, Cardiac - 11/11/16 11:30 C-Reactive Protein, Cardiac 1.93 mg/L 0.00-3.00 Lipid 1996 panel - 03/25/17 08:51 Serum or plasma triglyceride measurement (mass/volume) 100 mg/dL <150 Serum or plasma cholesterol measurement (mass/volume) 133 mg/dL < 200 Serum or plasma cholesterol in HDL measurement (mass/volume) 40 mg/ dL 40-60 Cholesterol in LDL [mass/volume] in serum or plasma by direct assay 78 mg/dL 1-129 Serum or plasma cholesterol in VLDL measurement (mass/volume) 20 mg/ dL 5-40 CBC - 09/28/17 11:22 WHITE BLOOD CELL COUNT 4.7 Thousand/uL 3.8-10.8 RED BLOOD CELL COUNT 4.64 Million/uL 4.20-5.80 HEMOGLOBIN 15.1 g/dL 13.2-17.1 HEMATOCRIT 44.6 % 38.5-50.0 MCV 96.1 fL 80.0-100.0 MCH 32.5 pg 27.0-33.0 MCHC 33.9 g/dL 32.0-36.0 RDW 12.5 % 11.0-15.0 PLATELET COUNT 196 Thousand/uL 140-400 MPV 10.3 fL 7.5-12.5 ABSOLUTE NEUTROPHILS 2562 cells/uL 1893-1222 ABSOLUTE LYMPHOCYTES 1401 cells/uL 850-3900 ABSOLUTE MONOCYTES 442 cells/uL 200-950 ABSOLUTE EOSINOPHILS 254 cells/uL 15-500 ABSOLUTE BASOPHILS 42 cells/uL 0-200 NEUTROPHILS 54.5 % NRG LYMPHOCYTES 29.8 % NRG MONOCYTES 9.4 % NRG EOSINOPHILS 5.4 % NRG BASOPHILS 0.9 % NRG Encounters ACCT No. Visit Date/Time Discharge Status Pt. Type Provider Facility Loc./Unit Complaint [id number] 01/31/2015 13:27:00 01/31/2015 23:59:59 CLS Outpatient WHITE DDS, YOSHI Alex [id number] 09/11/2014 13:47:00 09/11/2014 23:59:59 CLS Outpatient WHITE DDS, YOSHI Alex [id number] 08/15/2014 10:15:00 08/15/2014 23:59:59 CLS Outpatient BRIT ALVAREZ DO Mehrdad [id number] 07/18/2014 11:02:00 07/18/2014 23:59:59 CLS Outpatient WHITE DDS, YOSHI Alex [id number] 06/13/2014 06:50:00 06/13/2014 23:59:59 CLS Outpatient WHITE DDS, YOSHI Johnson [id number] 05/17/2014 09:01:00 05/17/2014 23:59:59 CLS Outpatient GLENNY LINDSAY APRN [id number] 04/19/2014 08:43:00 04/19/2014 23:59:59 CLS Outpatient WHITE DDS YOSHI Johnson [id number] 03/28/2014 14:59:00 03/28/2014 23:59:59 CLS Outpatient BEBETO NICOLE MD [id number] 01/23/2014 12:01:00 01/23/2014 23:59:59 CLS Outpatient BRIT ALVAREZ DO [id number] 09/19/2013 12:09:00 09/19/2013 23:59:59 CLS Outpatient BRIT ALVAREZ DO [id number] 08/09/2013 11:53:00 08/09/2013 23:59:59 CLS Outpatient WHITE DDS, MARIA LUZ Luo [id number] 01/12/2013 13:08:00 01/12/2013 23:59:59 CLS Outpatient AINSLEYOGHALU DDSKOKO [id number] 12/06/2012 09:20:00 12/06/2012 23:59:59 CLS Outpatient [id number] 11/03/2012 15:01:00 11/03/2012 23:59:59 CLS Outpatient [id number] 10/05/2012 10:08:00 10/05/2012 23:59:59 CLS Outpatient GLENNY LINDSAY APRN [id number] 07/06/2013 00:00:00 Document Registration [id number] 04/05/2013 08:52:00 Document Registration [id number] 03/14/2013 11:02:00 Document Registration [id number] 11/12/2016 13:05:00 Document Registration [id number] 02/01/2018 08:20:00 02/01/2018 23:59:59 CLS Outpatient GLENNY LINDSAY APRN [facility] [id number] 09/28/2017 10:20:00 Document Registration [id number] 02/02/2018 10:55:00 02/02/2018 23:59:59 CLS Outpatient FRANKI MILLAN [facility] RAD M54.42 LUMBAGO W/ SCIATICA, LT SIDE [id number] 08/26/2017 11:18:00 08/26/2017 23:59:59 CLS Outpatient Jamshid VERA MD [facility] LAB M79.89 N20.0 [id number] 04/22/2017 12:47:00 04/22/2017 23:59:59 CLS Outpatient Jamshid VERA MD [facility] LAB N20.0 [id number] 03/25/2017 08:39:00 03/25/2017 23:59:59 CLS Outpatient Jamshid VERA MD [facility] LAB E78.5 [id number] 01/08/2017 11:20:00 01/08/2017 23:59:59 CLS Outpatient Jamshid VERA MD [facility] CARD HYPERTENSION, HYPERLIPIDEMIA,KIM,SOB,SMOKING HX [id number] 01/06/2017 08:09:00 01/06/2017 23:59:59 CLS Outpatient Jamshid VERA MD [facility] CARD HTN,HLP,KIM,SOB [id number] 09/08/2016 19:55:00 09/09/2016 06:20:00 DIS Outpatient GLENNY LINDSAY [facility] SLEEP SNORING, OBSTRUCTIVE SLEEP APNEA [id number] 03/20/2015 00:11:00 03/20/2015 23:59:59 CLS Preadmit AMAN CARDOSO MD [facility] LAB STONES [id number] 12/26/2014 09:30:00 03/19/2015 00:01:00 DIS Outpatient AMAN CARDOSO MD [facility] LAB STONES [id number] 12/18/2014 12:34:00 12/18/2014 23:59:59 CLS Outpatient AMAN CARDOSO MD [facility] RAD POST ESWL [id number] 11/28/2014 08:45:00 11/28/2014 13:45:00 DIS Outpatient AMAN CARDOSO MD [facility] RIGHT URETRAL STONE [id number] 11/27/2014 12:12:00 11/27/2014 23:59:59 CLS Outpatient AMAN CARDOSO MD [facility] RAD POST ESWL [id number] 11/15/2014 06:11:00 11/15/2014 10:40:00 DIS Outpatient AMAN CARDOSO MD [facility] RIGHT RENAL CALCULI [id number] 11/14/2014 14:00:00 11/14/2014 23:59:59 CLS Outpatient AMAN CARDOSO MD [facility] PREOP RIGHT RENAL CALCULI [id number] 11/07/2014 06:06:00 11/07/2014 10:20:00 DIS Outpatient AMAN CARDOSO MD [facility] RIGHT URETERAL STONE [id number] 11/06/2014 10:16:00 11/06/2014 23:59:59 CLS Outpatient AMAN CARDOSO MD [facility] PREOP RIGHT URETERAL STONE [id number] 11/03/2014 22:28:00 11/04/2014 19:12:00 DIS Inpatient BRIT ALVAREZ DO [facility] SURGICAL INTRACTABLE ABD PAIN , LEUKOCYTOSIS,VOLUME DEPLETIO [id number] 04/17/2014 08:08:00 04/17/2014 11:45:00 DIS Outpatient PINO COY MD [facility] RECTAL BLEEDING [id number] 04/12/2014 07:14:00 04/12/2014 23:59:59 CLS Outpatient PINO COY MD M [facility] PREOP RECTAL BLEEDING [id number] 11/06/2014 13:42:00 Document Registration [id number] 11/06/2014 13:42:00 Document Registration [id number] 10/16/2011 07:12:00 Document Registration [id number] 09/02/2010 14:30:00 Document Registration [id number] 08/25/2010 19:23:00 Document Registration
--- NOTE | 2018-03-04 13:55 | ED Back Pain ---
General Chief Complaint: Back Problems Stated Complaint: LEFT HIP PAIN Nursing Triage Note: PT STATES HX OF BACK PAIN, PT [place]ED [place], CC OF PAIN IN LOW BACK THAT RADIATES DOWN LT LEG. Nursing Sepsis Screen: No Definite Risk History of Present Illness Date Seen by Provider: Mar 04, 2018 Time Seen by Provider: 14:05 Initial Comments 68-year-old male reports increased left low back hip and leg pain. He' s had long-standing history of lumbar back problems and sciatica. He had an MRI in January of this year and was told there is no further treatment at [facility] for his back pain. He is tried physical therapy and attended his last session 2 days ago with no improvement he has been discharged from therapy with home exercises. Timing/Duration: Getting Worse Severity: Moderate Pain/Injury Location: Back Radiation: Buttocks (left), Lower Legs, Upper Legs Method of Injury: Unknown Modifying Factors: Improves With Pain Medication (hydrocodone, cyclobenzaprine , Advil), Improves With Rest Associated Symptoms: muscle spasms; No numbness in legs/feet, No tingling in legs/feet, No sensory/motor loss; lower back pain; No loss of bladder control, No loss of bowel control Allergies and Home Medications Allergies Coded Allergies: No Known Drug Allergies (Verified , 11/23/07) Home Medications Acetaminophen 500 Mg Tablet, 500 MG PO TID, (Reported) Atorvastatin Calcium 10 Mg Tablet, 10 MG PO HS, (Reported) Cyclobenzaprine HCl 5 Mg Tablet, 5 MG PO PRN, (Reported) Doxazosin Mesylate 2 Mg Tablet, 1 EACH PO HS, (Reported) Finasteride 5 Mg Tab, 5 MG PO DAILY, (Reported) Furosemide 20 Mg Tablet, 20 MG PO DAILY, (Reported) Gabapentin 300 Mg Capsule, 300 MG PO DAILY, (Reported) Hydrocodone Bit/Acetaminophen 1 Tab Tab, 1 EACH PO Q6H PRN for PAIN Prescribed by: ROBERTA PHILLIPS on 03/04/18 1509 Prednisone 20 Mg Tab, 20 MG PO DAILY Take 2 tabs twice daily for 3 days, then take 1 tab twice dialy for 3 days, then take 1 tablet daily for 3 days. Prescribed by: ROBERTA PHILLIPS on 03/04/18 1503 Quinapril Hcl 20 Mg Tablet, 20 MG PO BID, (Reported) Patient Home Medication List Home Medication List Reviewed: Yes Constitutional: no symptoms reported, see HPI Musculoskeletal: see HPI, back pain All Other Systems Reviewed Negative Unless Noted: Yes Past Qinjxzk-Omlpxm-Lozour Hx Past Med/Social Hx: Reviewed Nursing Past Med/Soc Hx Patient Social History Alcohol Use: Denies Use Recreational Drug Use: No Smoking Status: Never a Smoker Recent Foreign Travel: No Contact w/Someone Who Travel: No Recent Infectious Disease Expo: No Recent Hopitalizations: No Immunizations Up To Date Tetanus Booster (TDap): Unknown Date of Pneumonia Vaccine: Nov 07, 2013 Date of Influenza Vaccine: Sep 09, 2014 Seasonal Allergies Seasonal Allergies: Yes Past Medical History Surgeries: Yes (STONE REMOVAL LEFT KIDNEY, 2 LITHROT.,HIATAL HERNIA REPAIR, DENTAL) Appendectomy, Vasectomy Respiratory: No Sleep Apnea Cardiac: Yes High Cholesterol, Hypertension Neurological: No Reproductive Disorders: No Sexually Transmitted Disease: No Genitourinary: Yes Prostate Problems, Kidney Stones Gastrointestinal: Yes (RECTAL BLEEDING) Hiatal Hernia Musculoskeletal: Yes (ARTHRITIS) Endocrine: No Cancer: No Psychosocial: No Integumentary: No Blood Disorders: Yes Adverse Reaction/Blood Tranf: No Family Medical History Reviewed Nursing Family Hx Arthritis 19 MOTHER, Onset:40's - 50 Cardiovascular disease 19 MOTHER Dementia 19 MOTHER Hypertension 19 MOTHER Respiratory disorder 19 FATHER No Family History of: AIDS Abdominal aortic aneurysm [place]'s disease Alcoholism Alzheimer's disease Aphasia Asthma Cancer of mouth Cataracts Colon cancer Completed stroke Congenital disease Congenital heart disease Coronary thrombosis Cystic fibrosis Deafness or hearing loss Diabetes mellitus Drug abuse Dysphasia Fibrocystic disease of breast Gastroenteritis Glaucoma Headache disorder Hypercholesterolemia Infertility Kidney disease Myocardial infarction Neoplasm Osteoporosis Parkinson's disease Prostate cancer Psychosocial problem Seizure disorder Severe allergy Thyroid disease Tuberculosis Visual disorder Physical Exam Vital Signs Vital Signs - First Documented 03/04/18 13:46 Temp 96.9 Pulse 81 Resp 20 B/P (MAP) 142/86 (104) Pulse Ox 93 O2 Delivery Room Air Capillary Refill : Less Than 3 Seconds General Appearance: No Apparent Distress, WD/WN Neck: Full Range of Motion, Normal Inspection, Non Tender Cardiovascular: Regular Rate, Rhythm, No Murmur, Normal Peripheral Pulses Respiratory: Chest Non Tender, Lungs Clear, Normal Breath Sounds Gastrointestinal: Normal Bowel Sounds, Non Tender, Soft Back: Normal Inspection, Decreased Range of Motion, Muscle Spasm, Other (Power V/V L5-S1. Full range of motion to the left hip and knee. Neurovascular status intact right lower extremity symmetric with the left. Positive straight leg raising sign) Neurologic/Psychiatric: Alert, Oriented x3, No Motor/Sensory Deficits, Normal Mood/Affect Progress/Results/Core Measures My Orders Orders - ROBERTA PHILLIPSP Orphenadrine Injection (Norflex Injectio (03/04/18 14:24) Hydromorphone Injection (Dilaudid Inject (03/04/18 14:24) Vital Signs/I&O 03/04/18 03/04/18 03/04/18 03/04/18 13:46 14:40 14:40 15:17 Temp 96.9 96.9 96.9 96.9 Pulse 81 74 Resp 20 20 B/P (MAP) 142/86 (104) 132/79 (104) Pulse Ox 93 94 O2 Delivery Room Air Room Air Blood Pressure Mean: 104 Progress Note : Time: 14:05 Progress Note Initial evaluation completed, reviewed patient's MRI from January 2018.Dilaudid 1 mg IM and Norflex 60 mg IM. 1500 patient reports improvement in his symptoms, less pain at this time. Neurovascular status continues to be intact bilaterally lower extremities. Discharge instructions and return precautions reviewed with patient. Diagonstic Imaging: MRI Plain Films/CT/US/NM/MRI: other (lumbar spine) Comments NAME: LALO OSBORNE MED REC#: [id number] PT STATUS: REG CLI : 1950 PHYSICIAN: FRANKI CALDERON ADMIT DATE: 02/04/18/RAD Signed Date of Exam: 02/04/18 MRI LUMBAR SPINE W/O CONTRAST PROCEDURE: MRI lumbar spine. TECHNIQUE: A multiplanar/multisequence MRI of the lumbar spine was performed without contrast. INDICATION: Low back pain with left hip and leg pain as well as numbness and tingling. COMPARISON: No prior studies are available for comparison. FINDINGS: The curvature of the lumbar spine is normal. There is minimal retrolisthesis of L2 on L3. The vertebral body heights are maintained. No acute compression fracture is seen. No geographic marrow lesion is identified. There is generalized degenerative disc disease with mild disc space narrowing and desiccation at all levels. The conus is unremarkable at the L1 level. Benign hemangiolipomas within the T11 and L1 vertebral bodies are noted. T12-L1: No central canal or neuroforaminal stenosis is identified. L1-2: Unremarkable. L2-3: There is a minimal disc/osteophyte complex but the central canal is widely patent. No significant neuroforaminal stenosis is seen. L3-4: There is a slightly asymmetric broad-based disc/osteophyte complex to the left. This produces slight indentation upon the ventral thecal sac. There is narrowing of the left lateral recess but no significant neuroforaminal stenosis is seen. The central canal is patent. L4-5: The central canal is widely patent. There is some annular bulging present. No neuroforaminal stenosis is seen. There is some mild bilateral lateral recess stenosis. L5-S1: There is a wide-based midline/left paramidline disc bulge. This does indent the ventral thecal sac. This does contact the left S1 nerve root origin. There is lateral recess stenosis. The neuroforamina are patent. The paraspinous tissues are unremarkable apart from a questionable large cyst of the right kidney, barely visible on this exam. IMPRESSION: Multilevel lumbar spondylosis with multilevel lateral recess narrowing described level by level above. There is a prominent wide based midline/left paramidline disc bulge at the L5-S1 level which effaces the left S1 nerve root origin. Dictated by: Dictated on workstation # [id number] Dict: 02/04/18 1008 Trans: 02/04/18 1105 Interpreted by: LETY CARLOS MD Electronically signed by: LETY CARLOS MD 02/04/18 1105 Reviewed: Reviewed by In Departure Impression Primary Impression: Lumbar radiculopathy Additional Impression: Back pain Qualified Codes: M54.42 - Lumbago with sciatica, left side; G89.29 - Other chronic pain Disposition: 01 HOME, SELF-CARE Condition: Improved Departure-Patient Inst. Decision time for Depature: 15:00 Referrals: [facility] (PCP/Family) Primary Care Physician Patient Instructions: Low Back Pain (DC) Add. Discharge Instructions: Alternate ice and warm moist compression to low back as needed. Follow-up with [facility] for referral to orthopedics if symptoms are not improving. Consider referral to orthopedics in [facility]. Call for Appointment. Use pain medication for severe pain. Take prednisone as prescribed. Complete your back exercises as recommended by her physical therapist. Return to the emergency department for urgent health care needs. Use your cane for ambulation hold in your right hand All discharge instructions reviewed with patient and/or family. Voiced understanding. Scripts Prednisone (Prednisone) 20 Mg Tab 20 MG PO DAILY, #21 TAB 0 Refills Take 2 tabs twice daily for 3 days, then take 1 tab twice dialy for 3 days, then take 1 tablet daily for 3 days. Prov: ROBERTA PHILLIPS 03/04/18 Hydrocodone Bit/Acetaminophen (Hydrocodone/Acetaminophen 5/325mg Tablet) 1 Tab Tab 1 EACH PO Q6H PRN for PAIN, #20 TAB 0 Refills Prov: ROBERTA PHILLIPS 03/04/18 Copy Copies To 1: BRIT ALVAREZ AMY ARNP Mar 04, 2018 13:55
[2018-03-04] MEDS: ORPHENADRINE 60 MG/2 ML (NORFLEX) AMP IM STA (14:40)
[2018-03-04] MEDS: HYDROmorphone 2 MG/ML VIAL (DILAUDID) IM STA (14:40)
[2018-03-04] MEDS ORDERED: KRIL1CAP12 PO (14:59)
[2018-03-04] MEDS ORDERED: HYDRANGEA (14:59)
[2018-03-04] MEDS ORDERED: FURO20TA4 PO (14:59)
[2018-03-04] MEDS ORDERED: GABA-488 PO (14:59)
[2018-03-04] MEDS ORDERED: ATOR10TA66 PO (14:59)
[2018-03-04] MEDS ORDERED: CYCL5TAB PO (14:59)
[2018-03-04] MEDS ORDERED: ASPI-586 PO (14:59)
[2018-03-04] MEDS ORDERED: ACHD5005 PO (15:05)
[2018-03-04] MEDS ORDERED: PRD20T PO (15:09)
[2018-03-04 15:17] VITALS: BP 132/79
== END 2018-03-04 15:16 | disposition home or self-care (01) ==
LOC: EDUNIT# 13:37 → ER 13:39
DX: M54.16 Radiculopathy, lumbar region (principal); G47.30 Sleep apnea, unspecified; E78.00 Pure hypercholesterolemia, unspecified; I10 Essential (primary) hypertension; Z87.442 Personal history of urinary calculi; Z79.52 Long term (current) use of systemic steroids; Z87.19 Personal history of other diseases of the digestive system; Z82.49 Family history of ischemic heart disease and other diseases of the circulatory system; Z90.49 Acquired absence of other specified parts of digestive tract; Z98.52 Vasectomy status
CPT/HCPCS: 96372; 99284

== ENCOUNTER 2018-04-30 14:58 | Emergency (ER) | payer MEDICARE ==
[~2018-04-30] VITALS: Ht 175.3 cm; Wt 92.5 kg
[~2018-04-30 14:58] MED LIST changes: +ACHD5005 PO; +ASPI-586 PO; +ATOR10TA66 PO; +CYCL5TAB PO; +FURO20TA4 PO; +GABA-488 PO; +HYDRANGEA; +KRIL1CAP12 PO; +PRD20T PO
--- NOTE | 2018-04-30 15:35 | ED General ---
General Chief Complaint: Lower Extremity Stated Complaint: LT LEG PAIN Nursing Triage Note: pt presents to ed with complaints of l lower pain and swelling since back sx over a month ago. Pt reports Vannessa Rico examined it Thursday and told him that it was related to his sx. Pt reports he wanted it checked out. Nursing Sepsis Screen: No Definite Risk Source of Information: Patient, Spouse Exam Limitations: No Limitations History of Present Illness Date Seen by Provider: Apr 30, 2018 Time Seen by Provider: 15:34 Initial Comments Patient presents to the emergency room with complaints of left lower extremity pain, swelling, and claudication. Patient underwent back surgery approximately one month ago by Dr. Prado at [address] Patient was seen by Vannessa Rico APRN on Thursday and was told the symptoms are related to his recent surgery. Timing/Duration: 1 Week, Getting Worse Modifying Factors: worse with Movement Allergies and Home Medications Allergies Coded Allergies: No Known Drug Allergies (Verified , 11/23/07) Home Medications Acetaminophen 500 Mg Tablet, 500 MG PO TID, (Reported) Atorvastatin Calcium 10 Mg Tablet, 10 MG PO HS, (Reported) Cyclobenzaprine HCl 5 Mg Tablet, 5 MG PO PRN, (Reported) Doxazosin Mesylate 2 Mg Tablet, 1 EACH PO HS, (Reported) Finasteride 5 Mg Tab, 5 MG PO DAILY, (Reported) Furosemide 20 Mg Tablet, 20 MG PO DAILY, (Reported) Gabapentin 300 Mg Capsule, 300 MG PO DAILY, (Reported) Hydrocodone Bit/Acetaminophen 1 Tab Tab, 1 EACH PO Q6H PRN for PAIN Prescribed by: ROBERTA PHILLIPS on 03/04/18 1505 Prednisone 20 Mg Tab, 20 MG PO DAILY Take 2 tabs twice daily for 3 days, then take 1 tab twice dialy for 3 days, then take 1 tablet daily for 3 days. Prescribed by: ROBERTA PHILLIPS on 03/04/18 1509 Quinapril Hcl 20 Mg Tablet, 20 MG PO BID, (Reported) Rivaroxaban 1 Each Tab.ds.pk, 1 EACH PO UD 15mg by mouth twice daily x 21 days then 20mg by mouth daily Prescribed by: BERTA BONE on 04/30/18 1641 Patient Home Medication List Home Medication List Reviewed: Yes Review of Systems Constitutional: no symptoms reported Respiratory: No cough, No dyspnea on exertion, No short of breath Cardiovascular: see HPI; No chest pain; edema; No palpitations, No syncope Gastrointestinal: no symptoms reported Musculoskeletal: see HPI Skin: no symptoms reported Psychiatric/Neurological: No Symptoms Reported, Pre-Existing Deficit ( neuropathy of the left lower extremity) All Other Systems Reviewed Negative Unless Noted: Yes (Negative excepted noted.) Past Itwwtzs-Eudvhe-Mbmtnl Hx Past Med/Social Hx: Reviewed Nursing Past Med/Soc Hx Patient Social History Alcohol Use: Denies Use Recreational Drug Use: No Smoking Status: Never a Smoker Recent Foreign Travel: No Contact w/Someone Who Travel: No Recent Infectious Disease Expo: No Recent Hopitalizations: No Physical Abuse: No Sexual Abuse: No Mistreated: No Fear: No Immunizations Up To Date Tetanus Booster (TDap): Unknown Date of Pneumonia Vaccine: Nov 07, 2013 Date of Influenza Vaccine: Sep 09, 2014 Seasonal Allergies Seasonal Allergies: Yes Past Medical History Surgeries: Yes (STONE REMOVAL LEFT KIDNEY, 2 LITHROT.,HIATAL HERNIA REPAIR, DENTAL) Appendectomy, Orthopedic, Vasectomy Respiratory: No Sleep Apnea Cardiac: Yes High Cholesterol, Hypertension Neurological: Yes Neuropathy Reproductive Disorders: No Sexually Transmitted Disease: No Genitourinary: Yes Prostate Problems, Kidney Stones Gastrointestinal: Yes (RECTAL BLEEDING) Hiatal Hernia Musculoskeletal: Yes (ARTHRITIS) Endocrine: No Cancer: No Psychosocial: No Nursing Suicide Risk Score: 0 Integumentary: No Blood Disorders: Yes Adverse Reaction/Blood Tranf: No Family Medical History Reviewed Nursing Family Hx Arthritis 19 MOTHER, Onset:40's - 50 Cardiovascular disease 19 MOTHER Dementia 19 MOTHER Hypertension 19 MOTHER Respiratory disorder 19 FATHER No Family History of: AIDS Abdominal aortic aneurysm Dawes's disease Alcoholism Alzheimer's disease Aphasia Asthma Cancer of mouth Cataracts Colon cancer Completed stroke Congenital disease Congenital heart disease Coronary thrombosis Cystic fibrosis Deafness or hearing loss Diabetes mellitus Drug abuse Dysphasia Fibrocystic disease of breast Gastroenteritis Glaucoma Headache disorder Hypercholesterolemia Infertility Kidney disease Myocardial infarction Neoplasm Osteoporosis Parkinson's disease Prostate cancer Psychosocial problem Seizure disorder Severe allergy Thyroid disease Tuberculosis Visual disorder Physical Exam Vital Signs Vital Signs - First Documented 04/30/18 15:14 Temp 97.6 Pulse 77 Resp 16 B/P (MAP) 118/75 (89) Pulse Ox 96 Capillary Refill : Less Than 3 Seconds General Appearance: No Apparent Distress, WD/WN HEENT: PERRL/EOMI, Pharynx Normal Neck: Normal Inspection, Supple Respiratory: Lungs Clear, Normal Breath Sounds, No Accessory Muscle Use, No Respiratory Distress Cardiovascular: Regular Rate, Rhythm, No Murmur, Normal Peripheral Pulses Gastrointestinal: Normal Bowel Sounds, Non Tender, Soft Extremity: Normal Capillary Refill, Calf Tenderness (left calf and popliteal ttp.), Inflammation (mild warmth of the left proximal calf.), Pedal Edema (LLE edema to the level of the knee. ) Neurologic/Psychiatric: Alert, Oriented x3, Normal Mood/Affect Skin: Normal Color, Warm/Dry Progress/Results/Core Measures Suspected Sepsis Recent Fever Within 48 Hours: No Infection Criteria Present: None New/Unexplained Altered Menta: No Sepsis Screen: No Definite Risk SIRS Temperature:97.6 Pulse: 77 Respiratory Rate: 16 Blood Pressure 118 /75 Mean: 89 Results/Orders My Orders Orders - BERTA BONE Us Venous Lower Ext Lt (04/30/18 15:30) Rivaroxaban Tablet (Xarelto Tablet) (04/30/18 17:00) Medications Given in ED Vital Signs/I&O Capillary Refill : Less Than 3 Seconds Blood Pressure Mean: 89 Diagnostic Imaging Diagonstic Imaging: Ultrasound Plain Films/CT/US/NM/MRI: leg Comments US VENOUS LOWER EXT LT PROCEDURE: US left lower extremity venous. TECHNIQUE: Multiple real-time grayscale images were obtained over the left lower extremity in various projections. Additional duplex Doppler and color Doppler images were also obtained. INDICATION: The veins have good color filling and compressibility. There is normal spontaneous and augmented flow. Impression: Negative venous Doppler of the left leg Dictated by: Dictated on workstation # [id number] Reviewed: Reviewed by Me (radiology report reviewed by me) Departure Communication (Admissions) [id number] patient case discussed with Dr. Koch including history, medicines, exam findings, and diagnostic study findings. Recommends beginning patient on Xarelto prophylactically due to recent surgery and classic symptoms for DVT. Request patient to follow-up with Dr. Prado on Thursday. Patient to call Thursday morning for an appointment time. Diagnostic findings and recommendations by Dr. Koch discussed with the patient. Patient verbalizes understanding and agrees with the treatment plan. Patient case discussed with Mayur Moreno, he agrees with the plan of care. Impression Primary Impression: Claudication of left lower extremity Additional Impression: History of back surgery Disposition: HOME, SELF-CARE Condition: Stable Departure-Patient Inst. Decision time for Depature: 16:36 [facility]errals: [facility] [place] Primary Care Physician YESSY PRADO BRIAN J MD Patient Instructions: Deep Vein Thrombosis (Blood Clots in the Legs) (DC) Add. Discharge Instructions: All discharge instructions reviewed with patient and/or family. Voiced understanding. Medications as instructed. Dr. Koch recommends starting you on Xarelto for symptoms of a DVT and due to your increased risk of a DVT due to the back surgery in March. Ultrasound of the left leg does not show a DVT at this time. You may need a repeat ultrasound of the left leg or further diagnostic imaging as an outpatient to further evaluate your symptoms. Follow- up with Dr. Prado on Thursday for recheck, call their office Thursday for appointment time. Elevate the left lower extremity on pillows. Return to the emergency department immediately for worsened pain, swelling, redness, fever, shortness of air, chest pain, or any other concerns. Scripts Rivaroxaban (Xarelto Starter Pack) 1 Each Tab.ds.pk 1 EACH PO UD, #51 PKG 0 Refills 15mg by mouth twice daily x 21 days then 20mg by mouth daily Prov: BERTA BONE 04/30/18 BERTA BONE Apr 30, 2018 15:35
--- NOTE | 2018-04-30 16:22 | Diagnostic Imaging Report ---
PROCEDURE: US left lower extremity venous. TECHNIQUE: Multiple real-time grayscale images were obtained over the left lower extremity in various projections. Additional duplex Doppler and color Doppler images were also obtained. INDICATION: The veins have good color filling and compressibility. There is normal spontaneous and augmented flow. Impression: Negative venous Doppler of the left leg Dictated by: Dictated on workstation # [id number]
[2018-04-30] MEDS ORDERED: RIVA1TAB PO (16:41)
[2018-04-30] MEDS ORDERED: RIVAROXABAN 15 MG TABLET (XARELTO) PO ONE (17:00)
[2018-04-30 17:59] VITALS: BP 123/72
== END 2018-04-30 17:59 | disposition home or self-care (01) ==
LOC: EDUNIT# 14:58 → ER 15:01
DX: I70.212 Atherosclerosis of native arteries of extremities with intermittent claudication, left leg (principal); G47.30 Sleep apnea, unspecified; E78.00 Pure hypercholesterolemia, unspecified; I10 Essential (primary) hypertension; Z79.52 Long term (current) use of systemic steroids; Z79.01 Long term (current) use of anticoagulants; Z87.442 Personal history of urinary calculi; Z90.89 Acquired absence of other organs; Z98.52 Vasectomy status; Z87.19 Personal history of other diseases of the digestive system; Z82.49 Family history of ischemic heart disease and other diseases of the circulatory system; Z98.890 Other specified postprocedural states

== ENCOUNTER → 2019-07-18 | Outpatient (CLI) | payer MEDICARE ==
[~2019-07-18] MED LIST changes: +RIVA1TAB PO
[2019-07-18 17:08] LABS: BILIRUBIN,URINE NEGATIVE (NEGATIVE); CLARITY,URINE CLEAR; COLOR,URINE YELLOW; GLUCOSE, URINE (UA) NEGATIVE (NEGATIVE); KETONES,URINE NEGATIVE (NEGATIVE); LEUKOCYTE ESTERASE ,URINE NEGATIVE (NEGATIVE); NITRITE,URINE NEGATIVE (NEGATIVE); PH,URINE 6 (5-9); PROTEIN,URINE NEGATIVE (NEGATIVE); UROBILINOGEN,URINE NORMAL (NORMAL)
[2019-07-18 17:17] LABS: BACTERIA,URINE NEGATIVE /HPF; SQUAMOUS EPITHELIAL CELL,UR RARE /HPF
[2019-07-18 17:19] LABS: RBC,URINE RARE /HPF
[2019-07-18 17:24] LABS: BUN/CREATININE RATIO 19; CALCIUM 9.4 MG/DL (8.5-10.1); CARBON DIOXIDE 21 MMOL/L (21-32); CHLORIDE 110 MMOL/L (98-107); CREATININE SERUM 1.12 MG/DL (0.60-1.30); GFR ESTIMATED > 60; GLUCOSE 102 MG/DL (70-105); SODIUM 140 MMOL/L (135-145)
== END ==
LOC: LAB 16:40
PROVIDERS: ATTEND Urology
DX: N40.1 Benign prostatic hyperplasia with lower urinary tract symptoms (principal)
CPT/HCPCS: 36415; 80048; 81000; 84153

== ENCOUNTER 2020-11-26 05:40 | Outpatient (RCR) | payer MEDICARE ==
[~2020-11-26] VITALS: Ht 175.3 cm; Wt 88.8 kg
== END 2020-11-26 16:15 | disposition home or self-care (01) ==
LOC: PREOP 05:40
PROVIDERS: ATTEND Surgery
DX: Z01.812 Encounter for preprocedural laboratory examination (principal); Z12.11 Encounter for screening for malignant neoplasm of colon

== ENCOUNTER → 2020-11-30 | Outpatient (CLI) | payer MEDICARE | LOC: LAB FS 10:35 | PROVIDERS: ATTEND Surgery | DX: Z01.812 Encounter for preprocedural laboratory examination (principal); Z20.822 Contact with and (suspected) exposure to COVID-19 | CPT/HCPCS: 87635 ==

== ENCOUNTER 2020-12-03 06:56 | Day surgery (SDC) | payer MEDICARE ==
[~2020-12-03] VITALS: Ht 175 cm; Wt 89.0 kg
[2020-12-03] MEDS ORDERED: LACTATED RINGERS 1,000 ML IV ONE (07:06)
[2020-12-03] MEDS ORDERED: LACTATED RINGERS 1,000 ML IV STA (07:07)
[2020-12-03 07:22] VITALS: BP 152/89
[2020-12-03] MEDS ORDERED: MIDAZOLAM 2 MG/2 ML (VERSED) VIAL ONE (08:18)
--- NOTE | 2020-12-03 08:18 | Progress Note-Pre Operative ---
Pre-Operative Progress Note H&P Reviewed The H&P was reviewed, patient examined and no changes noted. Time Seen by Provider: 08:11 Date H&P Reviewed: Dec 03, 2020 Time H&P Reviewed: 08:12 Pre-Operative Diagnosis: Screening colon, remote hx of colon polyps BRAD BRODY DO Dec 03, 2020 08:18
[2020-12-03] MEDS ORDERED: PROPOFOL INJECTION 50 ML IV ONE (08:39)
[2020-12-03 08:50] VITALS: BP 103/62
--- NOTE | 2020-12-03 08:53 | Progress Note-Post Operative ---
Post-Operative Progess Note Surgeon (s)/Telegraph Mechanic (s) Surgeon BRAD BRODY DO Telegraph Mechanic: CHELI Graves Pre-Operative Diagnosis Screening colon, remote hx of colon polyps Post-Operative Diagnosis Polyp Diverticula Int hemorrhoids Procedure & Operative Findings Date of Procedure 12/03/20 Procedure Performed/Findings colon with hot bx Anesthesia Type IV sedation by BOWLING OR SKATING FRONT DESK CLERK Estimated Blood Loss Estimated blood loss (mL): scant Specimens/Packing Specimens Removed appendiceal polyp BRAD BRODY DO Dec 03, 2020 08:53
--- NOTE | 2020-12-03 08:54 | Endoscopy Discharge Instruct ---
Endo Procedure/Findings Findings 1.: Polyp 2.: Diverticulosis 3.: Internal Hemorrhoids Discharge Instructions - Activity: You might feel a little sleepy until tomorrow. This is due to the medicine you received to relax you. Until tomorrow, you should: NOT drive a car, operate machinery or power tools. NOT drink any alcoholic beverages. NOT make any important decisions or sign importortant papers. Do not return to work until tomorrow, unless otherwise instructed. Resume previous activities tomorrow. Diet: Start by taking liquids. If you tolerate liquids, advance to solid food. 1.: Colonscopy in 5 years Notify Physician - If you experience excessive bleeding, unusual abdominal pain, fever, or chest pain, contact your doctor immediately. BRAD BRODY DO Dec 03, 2020 08:54
[2020-12-03 08:55] VITALS: BP 107/65
[2020-12-03 09:00] VITALS: BP 116/69
[2020-12-03 09:30] VITALS: BP 142/96
[2020-12-03 09:45] VITALS: BP 142/96
--- NOTE | 2020-12-03 11:51 | Anesthesia-General Post-Op ---
MAC Patient Condition Mental Status/LOC: Same as Preop Cardiovascular: Satisfactory Nausea/Vomiting: Absent Respiratory: Satisfactory Pain: Controlled Complications: Absent Post Op Complications Complications None Follow Up Care/Instructions Patient Instructions None needed. Anesthesiology Discharge Order Discharge Order Patient is doing well, no complaints, stable vital signs, no apparent adverse anesthesia problems. No complications reported per nursing. WILLA ROOT CRNA Dec 03, 2020 11:51
--- NOTE | 2020-12-03 23:12 | OPERATIVE REPORT ---
DATE OF SERVICE: PREOPERATIVE DIAGNOSIS: Screening colonoscopy with a remote history of polyps. POSTOPERATIVE DIAGNOSES: Colon polyp, diverticula, internal hemorrhoids. PROCEDURE: Colonoscopy with hot biopsy. SURGEON: Jose Rizvi DO. EGYPTOLOGIST: EDWIN Graves. ANESTHESIA: IV sedation by the MANAGER CARE MANAGEMENT. SPECIMEN: Polyp from the appendiceal orifice. BLOOD LOSS: Scant. FLUIDS: Per anesthesia. POSTOPERATIVE CONDITION: Stable. INDICATION FOR PROCEDURE: The patient is a 70-year-old male, it has been a long time since he had a colonoscopy and a remote history of polyps, needed a screening colonoscopy. FINDINGS: The patient had one polyp right at the appendiceal orifice. He had some diverticula as well as internal hemorrhoids. PROCEDURE NOTE: After informed consent was obtained, the patient was brought to the endoscopy suite, placed in bed in left lateral decubitus position. He was administered IV sedation by the MANAGER CARE MANAGEMENT who then monitored his vitals the entire time, heart rate, blood pressure and pulse ox and the scope was inserted, pushed all the way into about 150 cm, able to get to the cecum, noted the appendiceal orifice and saw a polyp seen right at the appendiceal orifice. Elected to do a hot biopsy of this and then noted the ileocecal valve, slowly withdrew the scope insufflating to look circumferentially at the mckinnon looking the cecum, up the ascending colon to the hepatic flexure, then down the transverse colon, splenic flexure, into the descending colon, then down in sigmoid and finally into the rectum. Throughout the sigmoid and descending colon, saw some diverticula, retroflexed the scope in the rectal vault, probably grade I internal hemorrhoids, took a picture and then removed the scope. The patient tolerated the procedure, recovered in endoscopy suite. Job ID: [id number] DocumentID: [id number] Dictated Date: 12/03/2020 14:41:53 Coating Inspector Date: 12/03/2020 23:12:02 Dictated By: JOSE RIZVI DO
== END 2020-12-03 09:45 | disposition home or self-care (01) ==
LOC: ENDO 06:56
PROVIDERS: ATTEND Surgery
DX: Z12.11 Encounter for screening for malignant neoplasm of colon (principal); K63.5 Polyp of colon; K57.30 Diverticulosis of large intestine without perforation or abscess without bleeding; K64.8 Other hemorrhoids; K62.89 Other specified diseases of anus and rectum; I10 Essential (primary) hypertension; G47.33 Obstructive sleep apnea (adult) (pediatric); E78.5 Hyperlipidemia, unspecified; M19.90 Unspecified osteoarthritis, unspecified site; E66.9 Obesity, unspecified; Z68.29 Body mass index [BMI] 29.0-29.9, adult; Z79.899 Other long term (current) drug therapy; Z79.82 Long term (current) use of aspirin; Z86.010 Personal history of colon polyps; Z80.8 Family history of malignant neoplasm of other organs or systems
CPT/HCPCS: 88305

== ENCOUNTER 2020-12-17 12:29 | Emergency (ER) | payer MEDICARE ==
[~2020-12-17] VITALS: Ht 172.7 cm; Wt 89.0 kg
[2020-12-17] MEDS ORDERED: ONDANSETRON 4 MG/2 ML (SDV) Z0FRAN IVP STA ×2 (12:43→14:46)
[2020-12-17] MEDS ORDERED: NS IV 1000 ML 1,000 ML IV STA (12:43)
[2020-12-17] MEDS ORDERED: PANTOPRAZOLE 40 MG (PROTONIX) VIAL IV STA (12:44)
[2020-12-17] MEDS: fentaNYL INJECTION 100 MCG/2 ML AMP IVP STA (12:56)
--- NOTE | 2020-12-17 13:00 | NUR ---
50mcg Fentanyl ordered; upon adminstration patient developed redness and hives at IV site; Discontinued medication administered Benadryl 25mg per physician order.
[2020-12-17 13:01] LABS: BASOPHILS % (AUTO) 0 % (0-10); EOSINOPHILS % (AUTO) 0 % (0-10); HEMATOCRIT 46 % (40-54); HEMOGLOBIN 16.3 G/DL (13.3-17.7); LYMPHOCYTES % (AUTO) 8 % (12-44); MEAN CORPUSCULAR HEMOGLOBIN 33 PG (25-34); MEAN CORPUSCULAR HGB CONC 35 G/DL (32-36); MEAN CORPUSCULAR VOLUME 95 FL (80-99); MEAN PLATELET VOLUME 10.2 FL (7.4-10.4); MONOCYTES % (AUTO) 3 % (0-12); NEUTROPHILS % (AUTO) 88 % (42-75); PLATELET COUNT 229 10^3/uL (130-400); WHITE BLOOD COUNT 10.8 10^3/uL (4.3-11.0)
[2020-12-17 13:02] LABS: LYMPHOCYTES # (AUTO) 0.9 X 10^3 (1.0-4.0); MONOCYTES # (AUTO) 0.3 X 10^3 (0.0-1.0); NEUTROPHILS # (AUTO) 9.5 X 10^3 (1.8-7.8)
--- NOTE | 2020-12-17 13:03 | ED GI ---
General Chief Complaint: Abdominal/GI Problems Stated Complaint: VOMITING Nursing Triage Note: Patient presents to the ED with c/o of abdominal pain, nausea, and vomiting. He reports the pain began around 0248 this morning and he has been dry heaving all morning. He states he received his second COVID vaccine on Thursday. Sepsis Screen: No Definite Risk Source of Information: Patient History of Present Illness Date Seen by Provider: Dec 17, 2020 Time Seen by Provider: 12:38 Initial Comments 70-year-old male presenting with complaints of diffuse abdominal pain since 248 this morning when he woke up. He has had nausea and vomiting to the point that now he is just dry heaving. He has no pain with urination. He had his last normal bowel movement yesterday and denies any abnormality with it. He had no dark tarry stool or blood in his stool. He has been vomiting to the point that he has occasionally had some blood-streaked emesis. He has been having some phlegm and cough since he started throwing up so much this morning. He feels chilled since this all started this morning for him. He states that he has not had symptoms like this previously. He has had a recent colonoscopy that looked okay with a single polyp removed on December 03. He has had multiple abdominal surgeries in the past but still has his gallbladder. Location: Generalized Abdomen (Generalized abdominal pain but started periumbilical) Activities at Onset: Sleeping Modifying Factors: Worsens With Movement, Worsens With Palpation, Worsens With Vomiting Associated Symptoms: No Back Pain, No Chest Pain; Diaphoresis, Fever/Chills (Subjective); No Headache; Nausea/Vomiting; No Swelling/Mass in Abdomen; Weakness (Generalized) Allergies and Home Medications Allergies Coded Allergies: No Known Drug Allergies (Verified , 11/23/07) Home Medications Acetaminophen 500 Mg Tablet, 500 MG PO TID, (Reported) Atorvastatin Calcium 10 Mg Tablet, 10 MG PO HS, (Reported) Cyclobenzaprine HCl 5 Mg Tablet, 5 MG PO PRN, (Reported) Doxazosin Mesylate 2 Mg Tablet, 1 EACH PO HS, (Reported) Finasteride 5 Mg Tab, 5 MG PO DAILY, (Reported) Furosemide 20 Mg Tablet, 20 MG PO DAILY, (Reported) Gabapentin 300 Mg Capsule, 300 MG PO DAILY, (Reported) Hydrocodone Bit/Acetaminophen 1 Tab Tab, 1 EACH PO Q6H PRN for PAIN Prescribed by: ROBERTA PHILLIPS on 03/04/18 1505 Hydrocodone/Acetaminophen 1 Each Tablet, 1 TAB PO Q4H PRN for PAIN-SEVERE (8-10) Prescribed by: TIMO EATON on 12/17/20 1450 Ondansetron 4 Mg Tab.rapdis, 4 MG PO Q6H PRN for NAUSEA/VOMITING Prescribed by: TIMO NGUYENRT on 12/17/20 1450 Quinapril Hcl 20 Mg Tablet, 20 MG PO BID, (Reported) Patient Home Medication List Home Medication List Reviewed: Yes Review of Systems Review of Systems Constitutional: chills, diaphoresis, malaise, weakness (Generalized) EENTM: No Symptoms Reported Respiratory: Shortness of Air Cardiovascular: Denies Chest Pain Gastrointestinal: Abdominal Pain (Cramping and sharp diffuse pain that started in the periumbilical); Denies Constipated, Denies Diarrhea, Denies Difficulty Swallowing; Nausea; Denies Rectal Bleeding; Vomiting Genitourinary: No Symptoms Reported Musculoskeletal: no symptoms reported Skin: no symptoms reported Psychiatric/Neurological: Weakness (general) Past Talwwlm-Iwbcai-Iarzbe Hx Past Med/Social Hx: Reviewed Nursing Past Med/Soc Hx Patient Social History Alcohol Use: Denies Use Smoking Status: Never a Smoker 2nd Hand Smoke Exposure: No Recent Infectious Disease Expo: No Recent Hopitalizations: No Immunizations Up To Date Tetanus Booster (TDap): Unknown Date of Pneumonia Vaccine: Oct 22, 2016 Date of Influenza Vaccine: Aug 27, 2020 Seasonal Allergies Seasonal Allergies: Yes Past Medical History Surgeries: Yes (STONE REMOVAL LEFT KIDNEY, 2 LITHROT.,HIATAL HERNIA REPAIR,DENTAL) Appendectomy, Ear Surgery, Orthopedic, Vasectomy Respiratory: No Sleep Apnea Currently Using CPAP: No Currently Using BIPAP: No Cardiac: Yes High Cholesterol, Hypertension Neurological: Yes Neuropathy Reproductive Disorders: No Sexually Transmitted Disease: No Genitourinary: Yes Prostate Problems, Kidney Stones Gastrointestinal: Yes (RECTAL BLEEDING) Hemorrhoids, Hiatal Hernia Musculoskeletal: Yes (ARTHRITIS) Endocrine: No HEENT: No Loss of Vision: Bilateral Hearing Impairment: Denies Cancer: No Psychosocial: No Integumentary: No Blood Disorders: Yes Adverse Reaction/Blood Tranf: No Family Medical History Arthritis 19 MOTHER, Onset:40's - 50 Cardiovascular disease 19 MOTHER Dementia 19 MOTHER Hypertension 19 MOTHER Respiratory disorder 19 FATHER No Family History of: AIDS Abdominal aortic aneurysm Oneida's disease Alcoholism Alzheimer's disease Aphasia Asthma Cancer of mouth Cataracts Colon cancer Completed stroke Congenital disease Congenital heart disease Coronary thrombosis Cystic fibrosis Deafness or hearing loss Diabetes mellitus Drug abuse Dysphasia Fibrocystic disease of breast Gastroenteritis Glaucoma Headache disorder Hypercholesterolemia Infertility Kidney disease Myocardial infarction Neoplasm Osteoporosis Parkinson's disease Prostate cancer Psychosocial problem Seizure disorder Severe allergy Thyroid disease Tuberculosis Visual disorder Physical Exam Vital Signs Vital Signs - First Documented 12/17/20 12:35 Temp 36.5 Pulse 66 Resp 20 B/P (MAP) 171/87 (115) Pulse Ox 99 O2 Delivery Room Air Capillary Refill : Less Than 3 Seconds Height/Weight/BMI Height: 5'9.00" Weight: 204lbs. oz. 92.291311mu; 29.00 BMI Method:Stated General Appearance: moderate distress, other (appears chronically ill) HEENT: No pharynx normal (dry mucous membranes) Neck: non-tender Respiratory: chest non-tender, no respiratory distress, no accessory muscle use, decreased breath sounds Cardiovascular: normal peripheral pulses, regular rate, rhythm Gastrointestinal: soft, no pulsatile mass, abnormal bowel sounds (hyperactive, tympanic sounding), guarding; No rebound; tenderness (diffuse) Rectal: deferred Extremities: normal range of motion, normal capillary refill Neurologic/Psychiatric: alert, oriented x 3 Skin: cool, pallor Images 1 - complains of diffuse pain to abdomen with palpation, guarding but no rebound. tympanic hyperactive bowel sounds Progress/Results/Core Measures Results/Orders Lab Results Laboratory Tests Test 12/17/20 12:40 12/17/20 13:34 Range/Units White Blood Count 10.8 4.3-11.0 10^3/uL Red Blood Count 4.88 4.35-5.85 10^6/uL Hemoglobin 16.3 13.3-17.7 G/DL Hematocrit 46 40-54 % Mean Corpuscular Volume 95 80-99 FL Mean Corpuscular Hemoglobin 33 25-34 PG Mean Corpuscular Hemoglobin Concent 35 32-36 G/DL Red Cell Distribution Width 13.0 10.0-14.5 % Platelet Count 229 130-400 10^3/uL Mean Platelet Volume 10.2 7.4-10.4 FL Immature Granulocyte % (Auto) 0 % Neutrophils (%) (Auto) 88 H 42-75 % Lymphocytes (%) (Auto) 8 L 12-44 % Monocytes (%) (Auto) 3 0-12 % Eosinophils (%) (Auto) 0 0-10 % Basophils (%) (Auto) 0 0-10 % Neutrophils # (Auto) 9.5 H 1.8-7.8 X 10^3 Lymphocytes # (Auto) 0.9 L 1.0-4.0 X 10^3 Monocytes # (Auto) 0.3 0.0-1.0 X 10^3 Eosinophils # (Auto) 0.0 0.0-0.3 10^3/uL Basophils # (Auto) 0.0 0.0-0.1 10^3/uL Immature Granulocyte # (Auto) 0.0 0.0-0.1 10^3/uL Neutrophils % (Manual) 88 % Lymphocytes % (Manual) 9 % Monocytes % (Manual) 2 % Eosinophils % (Manual) 0 % Basophils % (Manual) 0 % Band Neutrophils 1 % Sodium Level 142 135-145 MMOL/L Potassium Level 3.7 3.6-5.0 MMOL/L Chloride Level 107 98-107 MMOL/L Carbon Dioxide Level 20 L 21-32 MMOL/L Anion Gap 15 H 5-14 MMOL/L Blood Urea Nitrogen 20 H 7-18 MG/DL Creatinine 0.77 0.60-1.30 MG/DL Estimat Glomerular Filtration Rate > 60 BUN/Creatinine Ratio 26 Glucose Level 165 H 70-105 MG/DL Calcium Level 9.7 8.5-10.1 MG/DL Corrected Calcium 8.5-10.1 MG/DL Total Bilirubin 0.7 0.1-1.0 MG/DL Aspartate Amino Transf (AST/SGOT) 24 5-34 U/L Alanine Aminotransferase (ALT/SGPT) 26 0-55 U/L Alkaline Phosphatase 67 40-136 U/L Troponin I < 0.30 <0.30 NG/ML Pro-B-Type Natriuretic Peptide 46.4 <75.0 PG/ML Total Protein 7.2 6.4-8.2 GM/DL Albumin 4.7 H 3.2-4.5 GM/DL Lipase 24 8-78 U/L Urine Color YELLOW Urine Clarity SLT CLOUDY Urine pH 7.5 5-9 Urine Specific Saline 1.020 1.016-1.022 Urine Protein TRACE H NEGATIVE Urine Glucose (UA) 1+ H NEGATIVE Urine Ketones NEGATIVE NEGATIVE Urine Nitrite NEGATIVE NEGATIVE Urine Bilirubin NEGATIVE NEGATIVE Urine Urobilinogen 0.2 < = 1.0 MG/DL Urine Leukocyte Esterase NEGATIVE NEGATIVE Urine RBC (Auto) 1+ H NEGATIVE Urine RBC 2-5 H /HPF Urine WBC NONE /HPF Urine Squamous Epithelial Cells NONE /HPF Urine Crystals PRESENT H /LPF Urine Amorphous Sediment FEW SARAY PHOSPHATE H /LPF Urine Bacteria FEW H /HPF Urine Casts NONE /LPF Urine Mucus NEGATIVE /LPF Urine Culture Indicated NO My Orders Orders - TIMO EATON MD Ondansetron Injection (Zofran Injectio (12/17/20 12:43) Ns Iv 1000 Ml (Sodium Chloride 0.9%) (12/17/20 12:43) Pantoprazole Injection (Protonix Injecti (12/17/20 12:44) Fentanyl Injection (Sublimaze Injection (12/17/20 12:44) Comprehensive Metabolic Panel (12/17/20 12:44) Lipase (12/17/20 12:44) Ua Culture If Indicated (12/17/20 12:44) Ed Iv/Invasive Line Start (12/17/20 12:44) Cbc With Automated Diff (12/17/20 12:44) Ct Abdomen/Pelvis Wo (12/17/20 12:44) Ekg Tracing (12/17/20 12:44) Monitor-Rhythm Ecg Trace Only (12/17/20 12:44) Troponin I Fs (12/17/20 12:44) Probnp Fs (12/17/20 12:44) Manual Differential (12/17/20 12:40) Ketorolac Injection (Toradol Injection) (12/17/20 13:13) Diphenhydramine Injection (Benadryl Inje (12/17/20 13:13) Ondansetron Injection (Zofran Injectio (12/17/20 14:46) Vital Signs/I&O 12/17/20 12/17/20 12:35 14:59 Temp 36.5 36.5 Pulse 66 72 Resp 20 18 B/P (MAP) 171/87 (115) 158/74 (115) Pulse Ox 99 99 O2 Delivery Room Air Blood Pressure Mean: 115 Progress Progress Note #1: Progress Note check labs, urine, ECG with him having epigastric pain and n/v, CT scan to evaluate his diffuse abdominal pain to see if he has bowel obstruction, mass, perforation, diverticulitis, cholecystitis, gastritis, colitis, pancreatitis, kidney stone, fluid collection for an abscess. Check cardiac enzymes to evaluate for ACS. Give Zofran for nausea/vomiting, Fentanyl for pain, IVF for hydration, Pantoprazole for possible gastritis. ECG shows sinus rhythm with HR [address] elevation. appears similar to tracing from 2014. When getting Fentanyl he started to have red welt at site of injection at his IV site so the Fentanyl was stopped being given by IV push. Pt denies any itching or pain at site. Will give Benadryl for the welt and Toradol for pain. Progress Note #2: Time: 13:33 Progress Note labs show CBC with WBC count of 10.8 and left shift with 88 % neutrophils and 1 % bands. Chemistry without acute significant abnormality. Troponin negative and Lipase normal. Awaiting UA and CT scan. Progress Note #3: Progress Note UA shows some blood but no definite infection. CT scan shows diverticulosis without diverticulitis. Small 2 mm kidney stone in proximal right ureter without obstruction or hydronephrosis. Pt and spouse updated on results and findings. He had made the comments that the symptoms of n/v and pain felt similar to kidney stone pain other than it was not in his back. He was feeling better with treatment in the ED and was wanting to try going home. Will try dissolving nausea Zofran ODT medicine to help settle his stomach. Hydrocodone for severe pain, Miralax if needed to help prevent constipation from Hydrocodone. If symptoms not improving or worsening then return or seek care in [place] as he may need admitted for a stent or treatment with Dr. Cardoso. Try liquid diet for 24 to 48 hours along with the meds. Initial ECG Impression Date: Dec 17, 2020 Initial ECG Impression Time: 12:41 Initial ECG Rate: 56 Initial ECG Rhythm: Normal Sinus Initial ECG Comparisson: Unchanged (2014 tracing) Comment Sinus rhythm with a heart rate of 56 bpm. HI interval [address] elevation. QT interval 431 ms with a QTc interval 416 ms. This appears similar to tracing from 2014. Diagnostic Imaging Diagonstic Imaging: CT Plain Films/CT/US/NM/MRI: abdomen, pelvis Comments NAME: LALO OSBORNE MED REC#: [id number] PT STATUS: DEP ER : 1950 PHYSICIAN: TIMO EATON MD ADMIT DATE: 12/17/20/ER FS Signed Date of Exam:12/17/20 CT ABDOMEN/PELVIS WO PROCEDURE: CT abdomen and pelvis without contrast. TECHNIQUE: Multiple contiguous axial images were obtained through the abdomen and pelvis without the use of intravenous contrast. Auto Exposure Controls were utilized during the CT exam to meet ALARA standards for radiation dose reduction. INDICATION: Abdominal pain with nausea and vomiting. COMPARISON: Correlation is made with prior CT from 11/03/2014. FINDINGS: Lung bases are clear. The liver and gallbladder are unremarkable. No biliary ductal dilatation is seen. Pancreas and spleen are unremarkable. No adrenal mass is detected. A cortical low density arising from the right kidney is again noted measuring 5.7 cm in size and consistent with a cyst. No renal calculi are identified. There is a 2 mm calculus in the proximal right ureter just beyond the UPJ without significant hydronephrosis. Left ureter is unremarkable. Aorta is nonaneurysmal. Small and large bowel loops are normal in caliber. There is extensive diverticulosis of the sigmoid but no evidence of acute diverticulitis. There is no free fluid or fluid collection. Bladder is unremarkable. Prostate is enlarged. No definite abdominal or pelvic lymphadenopathy is seen. IMPRESSION: 1. Uncomplicated diverticulosis. 2. Prostatomegaly. 3. 2 mm proximal right ureteric calculus without evidence of hydronephrosis. Dictated by: Dictated on workstation # [id number] Dict: 12/17/20 1339 Trans: 12/17/20 1559 [id number] [id number] Interpreted by: LETY CARLOS MD Electronically signed by: LETY CARLOS MD 12/17/20 1559 Reviewed: Reviewed by Me, Discussed w/Radiologist Departure Impression Primary Impression: Diffuse abdominal pain Additional Impressions: Nausea & vomiting Qualified Codes: R11.2 - Nausea with vomiting, unspecified Calculus of proximal right ureter Disposition: HOME, SELF-CARE Condition: Stable Departure-Patient Inst. Decision time for Depature: 14:54 Referrals: SELFMAXI MD (PCP/Family) Primary Care Physician AMAN CARDOSO MD Patient Instructions: Nausea and Vomiting, Adult ED, Kidney Stone, Adult ED, Abdominal Pain, Adult ED Add. Discharge Instructions: Follow a liquid diet for the next 24 to 48 hours to help stay well hydrated. Use the nausea medicine to help keep your stomach settled. Take a laxative such as miralax to help keep your stools soft and loose while you are taking a narcotic pain medicine like the Hydrocodone. If the pain and nausea is not improving or is worsening then return or you may need to go to [place] for possible admission to the hospital and to see Dr. Cardoso. All discharge instructions reviewed with patient and/or family. Voiced understanding. Scripts Ondansetron (Ondansetron Odt) 4 Mg Tab.rapdis 4 MG PO Q6H PRN for NAUSEA/VOMITING for 5 Days, #20 TAB 0 Refills Prov: TIMO EATON MD 12/17/20 Hydrocodone/Acetaminophen (Hydrocodone-Acetamin 5-325 mg) 1 Each Tablet 1 TAB PO Q4H PRN for PAIN-SEVERE (8-10) for 3 Days, #15 TAB 0 Refills Prov: TIMO EATON MD 12/17/20 TIMO EATON MD Dec 17, 2020 13:03
[2020-12-17] MEDS ORDERED: KETOROLAC 30 MG/ML VIAL IVP STA (13:13)
[2020-12-17] MEDS ORDERED: diphenhydrAMINE 50 MG/ML INJ (BENADRYL) IVP STA (13:13)
[2020-12-17 13:19] LABS: ALANINE AMINOTRANSFERASE 26 U/L (0-55); ALKALINE PHOSPHATASE 67 U/L (40-136); BILIRUBIN,TOTAL 0.7 MG/DL (0.1-1.0); BUN/CREATININE RATIO 26; CALCIUM 9.7 MG/DL (8.5-10.1); CARBON DIOXIDE 20 MMOL/L (21-32); CHLORIDE 107 MMOL/L (98-107); CREATININE SERUM 0.77 MG/DL (0.60-1.30); GFR ESTIMATED > 60; GLUCOSE 165 MG/DL (70-105); POTASSIUM 3.7 MMOL/L (3.6-5.0); SODIUM 142 MMOL/L (135-145); TOTAL PROTEIN 7.2 GM/DL (6.4-8.2)
[2020-12-17 13:20] LABS: ALBUMIN 4.7 GM/DL (3.2-4.5); LIPASE 24 U/L (8-78)
[2020-12-17 13:27] LABS: BAND NEUTROPHILS 1 %; BASOPHILS % (MANUAL) 0 %; EOSINOPHILS % (MANUAL) 0 %; LYMPHOCYTES % (MANUAL) 9 %; MONOCYTES % (MANUAL) 2 %; NEUTROPHILS % (MANUAL) 88 %
--- NOTE | 2020-12-17 13:47 | Diagnostic Imaging Report ---
PROCEDURE: CT abdomen and pelvis without contrast. TECHNIQUE: Multiple contiguous axial images were obtained through the abdomen and pelvis without the use of intravenous contrast. Auto Exposure Controls were utilized during the CT exam to meet ALARA standards for radiation dose reduction. INDICATION: Abdominal pain with nausea and vomiting. COMPARISON: Correlation is made with prior CT from 11/03/2014. FINDINGS: Lung bases are clear. The liver and gallbladder are unremarkable. No biliary ductal dilatation is seen. Pancreas and spleen are unremarkable. No adrenal mass is detected. A cortical low density arising from the right kidney is again noted measuring 5.7 cm in size and consistent with a cyst. No renal calculi are identified. There is a 2 mm calculus in the proximal right ureter just beyond the UPJ without significant hydronephrosis. Left ureter is unremarkable. Aorta is nonaneurysmal. Small and large bowel loops are normal in caliber. There is extensive diverticulosis of the sigmoid but no evidence of acute diverticulitis. There is no free fluid or fluid collection. Bladder is unremarkable. Prostate is enlarged. No definite abdominal or pelvic lymphadenopathy is seen. IMPRESSION: 1. Uncomplicated diverticulosis. 2. Prostatomegaly. 3. 2 mm proximal right ureteric calculus without evidence of hydronephrosis. Dictated by: Dictated on workstation # [id number]
[2020-12-17 14:09] LABS: BACTERIA,URINE FEW /HPF; BILIRUBIN,URINE NEGATIVE (NEGATIVE); CLARITY,URINE SLT CLOUDY; COLOR,URINE YELLOW; GLUCOSE, URINE (UA) 1+ (NEGATIVE); KETONES,URINE NEGATIVE (NEGATIVE); LEUKOCYTE ESTERASE ,URINE NEGATIVE (NEGATIVE); NITRITE,URINE NEGATIVE (NEGATIVE); PH,URINE 7.5 (5-9); PROTEIN,URINE TRACE (NEGATIVE)
[2020-12-17 14:10] LABS: AMORPHOUS SEDIMENT,UR FEW AMOR PHOSPHATE /LPF
[2020-12-17] MEDS ORDERED: ONDA4TAB11 PO (14:50)
[2020-12-17] MEDS ORDERED: ACHD5005 PO (14:50)
[2020-12-17 14:59] VITALS: BP 158/74
== END 2020-12-17 14:58 | disposition home or self-care (01) ==
LOC: EDUNIT# 12:29 → ER FS 12:30
DX: R10.84 Generalized abdominal pain (principal); R11.2 Nausea with vomiting, unspecified; N20.1 Calculus of ureter; E78.00 Pure hypercholesterolemia, unspecified; I10 Essential (primary) hypertension; Z82.49 Family history of ischemic heart disease and other diseases of the circulatory system; Z82.61 Family history of arthritis
CPT/HCPCS: 36415; 74176; 80053; 81000; 83690; 83880; 84484; 85007; 85027; 93005

== ENCOUNTER → 2021-03-22 | Outpatient (CLI) | payer MEDICARE ==
[~2021-03-22] MED LIST changes: +ONDA4TAB11 PO
--- NOTE | 2021-03-22 16:47 | Diagnostic Imaging Report ---
Abdomen at 1:53. Indication: Right flank pain CT abdomen/pelvis exam of 12/17/2019 noted a 2 mm calculus in the proximal right ureter. That calcification cannot be identified with certainty on this exam. There is no other evidence for nephrolithiasis or urolithiasis although both kidneys are partially obscured by bowel gas and fecal material. There is no mass or organomegaly appreciated. Surgical clips are again seen overlying the right lower quadrant. There is some gas in both large and small bowel in a nonspecific fashion. There is no evidence for a bowel obstruction. There does appear to be at least a moderate amount of fecal material throughout the colon. The osseous structures are intact. Impression: 1. The previously noted obstructive calculus cannot be identified for certain on this study. If further evaluation is desired, repeat CT abdomen/pelvis exam recommended. 2. There is no evidence for nephrolithiasis or urolithiasis. Dictated by: Dictated on workstation # [id number]
== END ==
LOC: RAD FS 13:37
PROVIDERS: ATTEND Urology
DX: N20.0 Calculus of kidney (principal)
CPT/HCPCS: 74018

== ENCOUNTER → 2021-07-19 | Outpatient (CLI) | payer MEDICARE ==
--- NOTE | 2021-07-19 13:20 | Diagnostic Imaging Report ---
EXAMINATION: Abdomen 1 view HISTORY: KIDNEY STONES COMPARISON: 03/22/2021 FINDINGS: There is a moderate amount of gas and stool throughout the colon. Nonobstructive bowel gas pattern. No visualized radiopaque stones. Surgical clip is seen overlying the right mid abdomen. Degenerative changes of the hips and spine. Osseous structures are otherwise intact. IMPRESSION: No visualized radiopaque renal stone. Dictated by: Dictated on workstation # [id number]
== END ==
LOC: RAD FS 12:49
PROVIDERS: ATTEND Urology
DX: N20.0 Calculus of kidney (principal)
CPT/HCPCS: 74018